=== PATIENT | male | born 1970 | race Caucasian/White ===

== ENCOUNTER 2017-03-09 10:56 | Inpatient (IN) | payer MEDICARE, OTHER ==
[2017-03-09 11:30] VITALS: BMI 33.4
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
[2017-03-09] MEDS ORDERED: MAGNESIUM HYDROX 2400MG/30ML ORAL SUSPENSION 30 ML CUP PO PRN (12:00)
[2017-03-09] MEDS ORDERED: chlordiazePOXIDE HCL 25 MG CAPSULE PO PRN (12:00)
[2017-03-09] MEDS ORDERED: P-EPHED 60MG/TRIPROLIDI 2.5MG TABLET PO PRN (12:00)
[2017-03-09] MEDS ORDERED: MAGNESIUM CITRATE 300 ML BOTTLE PO PRN (12:00)
[2017-03-09] MEDS ORDERED: MENTHOL/PHENOL 1 EACH UD MM PRN (12:00)
[2017-03-09] MEDS ORDERED: hydrOXYzine PAMOATE 50 MG CAPSULE (FP) PO PRN (12:00)
[2017-03-09] MEDS ORDERED: LOPERAMIDE HCL 2 MG CAPSULE PO PRN (12:00)
[2017-03-09] MEDS ORDERED: NICOTINE POLACRILEX 2 MG GUM BUC PRN (12:00)
[2017-03-09] MEDS ORDERED: guaiFENesin/D-METHORPHAN HB 10 ML UNIT-DOSE CUPS PO PRN (12:00)
[2017-03-09] MEDS ORDERED: IBUPROFEN 400 MG TABLET (FP) PO PRN (12:00)
[2017-03-09] MEDS ORDERED: ACETAMINOPHEN 325 MG TABLET (FP) PO PRN (12:00)
[2017-03-09] MEDS ORDERED: chlordiazePOXIDE HCL 25 MG CAPSULE PO ONE (13:00)
[2017-03-09] MEDS: LEVOTHYROXINE NA 125 MCG TABLET (FP) PO SCH (15:29)
[2017-03-09] MEDS: chlordiazePOXIDE HCL 25 MG CAPSULE PO SCH ×2 (18:01→22:30)
[2017-03-09 18:17] LABS: URINE APPEARANCE CLEAR; URINE BILIRUBIN NEGATIVE (NEGATIVE); URINE BLOOD NEGATIVE (NEGATIVE); URINE COLOR LTYELLOW; URINE GLUCOSE (UA) NEGATIVE (NEGATIVE); URINE KETONE NEGATIVE (NEGATIVE); URINE LEUK ESTERASE NEGATIVE (NEGATIVE); URINE NITRITE NEGATIVE (NEGATIVE); URINE PROTEIN NEGATIVE (NEGATIVE); URINE UROBILINOGEN NEGATIVE mg/dL (0.2-1.0)
[2017-03-09] MEDS: THIAMINE HCL 100 MG TABLET (FP) PO SCH (22:30)
[2017-03-09] MEDS: diphenhydrAMINE HCL 50 MG CAPSULE PO PRN (22:31)
[2017-03-09] MEDS: MAG HYDROX/AL HYDROX/SIMETH 30 ML UNIT-DOSE CUP PO PRN (22:32)
[2017-03-10] MEDS: chlordiazePOXIDE HCL 25 MG CAPSULE PO SCH ×4 (06:14→22:41)
--- NOTE | 2017-03-10 08:11 | EKG ---
Test Reason : Blood Pressure : / mmHG Vent. Rate : 091 BPM Atrial Rate : 091 BPM P-R Int : 158 ms QRS Dur : 080 ms QT Int : 340 ms P-R-T Axes : 045 025 033 degrees QTc Int : 418 ms NORMAL SINUS RHYTHM POSSIBLE LEFT ATRIAL ENLARGEMENT BORDERLINE ECG NO PREVIOUS ECGS AVAILABLE Confirmed by HERMINIO WHYTE, MONI ([id number]) on 03/10/2017 8:11:28 AM Referred By: Confirmed By:MONI DURHAM MD
[2017-03-10 09:26] LABS: MCH 33.3 pg (25.7-33.7); MCHC 33.9 g/dl (32.0-35.9); MEAN PLT VOLUME 7.6 fl (7.5-11.1); PLATELET COUNT 194 K/MM3 (134-434); RDW 14.6 % (11.9-15.9); WHITE BLOOD COUNT 5.2 K/mm3 (4.0-10.0)
[2017-03-10 10:09] LABS: ALBUMIN 3.5 g/dl (3.4-5.0); ALK PHOS 45 U/L (45-117); ANION GAP 6 (8-16); BILIRUBIN,TOTAL 0.7 mg/dL (0.2-1.0); CALCIUM 8.7 mg/dL (8.5-10.1); CO2 27 mmol/L (21-32); CREATININE 0.8 mg/dL (0.7-1.3); GLUCOSE,RANDOM 112 mg/dL (74-106); SGOT/AST 26 U/L (15-37); SGPT/ALT 30 U/L (12-78); THYROID STIMULATING HORMONE 0.45 uIU/ml (0.358-3.74); TOT PROT 6.5 g/dl (6.4-8.2)
[2017-03-10] MEDS: PRENATAL VITAMINS W/ FOLIC ACID TABLET (FP) PO SCH (10:43)
[2017-03-10] MEDS: MAG HYDROX/AL HYDROX/SIMETH 30 ML UNIT-DOSE CUP PO PRN (10:43)
[2017-03-10] MEDS: LEVOTHYROXINE NA 125 MCG TABLET (FP) PO SCH (10:43)
[2017-03-10] MEDS: PANTOPRAZOLE 20 MG TABLET (FP) PO SCH ×2 (13:52→22:41)
--- NOTE | 2017-03-10 15:47 | PN ---
S CIWA - CIWA Score Nausea/Vomitin Muscle Tremors: 4-Moderate,w/Arms Extend Anxiety: 4-Mod. Anxious/Guarded Agitation: 3 Paroxysmal Sweats: No Perspiration Orientation: 0-Oriented Tacttile Disturbances: 1-Very Mild Itch/Numbness Auditory Disturbances: 0-None Visual Disturbances: 0-None Headache: 2-Mild CIWA-Ar Total Score: 17 BHS Progress Note (SOAP) Subjective: Tremor, chills, nausea, anxious, sweating, indigestion Objective: 03/10/17 15:46 Last Vital Signs Temp Pulse Resp BP Pulse Ox 96.9 F L 66 18 139/87 03/10/17 14:58 03/10/17 14:58 03/10/17 14:58 03/10/17 14:58 Laboratory Tests 03/09/17 03/10/17 03/10/17 14:27 07:40 07:40 WBC 5.2 RBC 3.87 L Hgb 12.9 Hct 37.9 MCV 98.0 H MCH 33.3 MCHC 33.9 RDW 14.6 Plt Count 194 MPV 7.6 Sodium 138 Potassium 3.8 Chloride 105 Carbon Dioxide 27 Anion Gap 6 L BUN 15 Creatinine 0.8 Creat Clearance w eGFR > 60 Random Glucose 112 H Calcium 8.7 Total Bilirubin 0.7 AST 26 ALT 30 Alkaline Phosphatase 45 Total Protein 6.5 Albumin 3.5 TSH 0.45 Urine Color Ltyellow Urine Appearance Clear Urine pH 6.0 Ur Specific [place] 1.020 Urine Protein Negative Urine Glucose (UA) Negative Urine Ketones Negative Urine Blood Negative Urine Nitrite Negative Urine Bilirubin Negative Urine Urobilinogen Negative Ur Leukocyte Esterase Negative RPR Titer 03/10/17 07:40 WBC RBC Hgb Hct MCV MCH MCHC RDW Plt Count MPV Sodium Potassium Chloride Carbon Dioxide Anion Gap BUN Creatinine Creat Clearance w eGFR Random Glucose Calcium Total Bilirubin AST ALT Alkaline Phosphatase Total Protein Albumin TSH Urine Color Urine Appearance Urine pH Ur Specific [place] Urine Protein Urine Glucose (UA) Urine Ketones Urine Blood Urine Nitrite Urine Bilirubin Urine Urobilinogen Ur Leukocyte Esterase RPR Titer Nonreactive Labs noted Assessment: 03/10/17 15:47 Withdrawal symptoms Plan: Continue detox Encouraged to drink lots of water for hydration
[2017-03-10] MEDS: diphenhydrAMINE HCL 50 MG CAPSULE PO PRN (22:41)
[2017-03-10] MEDS: THIAMINE HCL 100 MG TABLET (FP) PO SCH (22:41)
[2017-03-11] MEDS: chlordiazePOXIDE HCL 25 MG CAPSULE PO SCH ×2 (06:04→10:41)
[2017-03-11] MEDS: PRENATAL VITAMINS W/ FOLIC ACID TABLET (FP) PO SCH (10:41)
[2017-03-11] MEDS: LEVOTHYROXINE NA 125 MCG TABLET (FP) PO SCH (10:41)
[2017-03-11] MEDS: PANTOPRAZOLE 20 MG TABLET (FP) PO SCH ×2 (10:41→22:35)
--- NOTE | 2017-03-11 11:21 | PN ---
[facility] CIWA - CIWA Score Nausea/Vomitin Muscle Tremors: 4-Moderate,w/Arms Extend Anxiety: 3 Agitation: 3 Paroxysmal Sweats: 3 Orientation: 0-Oriented Tacttile Disturbances: 0-None Auditory Disturbances: 0-None Visual Disturbances: 0-None Headache: 0-None Present CIWA-Ar Total Score: 16 S Progress Note (SOAP) Subjective: Anxiety,Tremors,sweating,interrupted sleep,restless Objective: 03/11/17 11:20 Vital Signs - 8 hr 03/11/17 03/11/17 03/11/17 03:26 07:27 09:13 Temperature 96.1 F L 99.4 F Pulse Rate 58 L 74 Respiratory 18 18 18 Rate Blood Pressure 126/81 136/82 Laboratory Last Values WBC 5.2 K/mm3 (4.0-10.0) 03/10/17 07:40 RBC 3.87 M/mm3 (4.00-5.60) L 03/10/17 07:40 Hgb 12.9 GM/dL (11.7-16.9) 03/10/17 07:40 Hct 37.9 % (35.4-49) 03/10/17 07:40 MCV 98.0 fl (80-96) H 03/10/17 07:40 MCH 33.3 pg (25.7-33.7) 03/10/17 07:40 MCHC 33.9 g/dl (32.0-35.9) 03/10/17 07:40 RDW 14.6 % (11.9-15.9) 03/10/17 07:40 Plt Count 194 K/MM3 (134-434) 03/10/17 07:40 MPV 7.6 fl (7.5-11.1) 03/10/17 07:40 Sodium 138 mmol/L (136-145) 03/10/17 07:40 Potassium 3.8 mmol/L (3.5-5.1) 03/10/17 07:40 Chloride 105 mmol/L (98-107) 03/10/17 07:40 Carbon Dioxide 27 mmol/L (21-32) 03/10/17 07:40 Anion Gap 6 (8-16) L 03/10/17 07:40 BUN 15 mg/dL (7-18) 03/10/17 07:40 Creatinine 0.8 mg/dL (0.7-1.3) 03/10/17 07:40 Creat Clearance w eGFR > 60 (>60) 03/10/17 07:40 Random Glucose 112 mg/dL (74-106) H 03/10/17 07:40 Calcium 8.7 mg/dL (8.5-10.1) 03/10/17 07:40 Total Bilirubin 0.7 mg/dL (0.2-1.0) 03/10/17 07:40 AST 26 U/L (15-37) 03/10/17 07:40 ALT 30 U/L (12-78) 03/10/17 07:40 Alkaline Phosphatase 45 U/L (45-117) 03/10/17 07:40 Total Protein 6.5 g/dl (6.4-8.2) 03/10/17 07:40 Albumin 3.5 g/dl (3.4-5.0) 03/10/17 07:40 TSH 0.45 uIU/ml (0.358-3.74) 03/10/17 07:40 Urine Color Ltyellow 03/09/17 14:27 Urine Appearance Clear 03/09/17 14:27 Urine pH 6.0 (5.0-8.0) 03/09/17 14:27 Ur Specific [place] 1.020 (1.005-1.025) 03/09/17 14:27 Urine Protein Negative (NEGATIVE) 03/09/17 14:27 Urine Glucose (UA) Negative (NEGATIVE) 03/09/17 14:27 Urine Ketones Negative (NEGATIVE) 03/09/17 14:27 Urine Blood Negative (NEGATIVE) 03/09/17 14:27 Urine Nitrite Negative (NEGATIVE) 03/09/17 14:27 Urine Bilirubin Negative (NEGATIVE) 03/09/17 14:27 Urine Urobilinogen Negative mg/dL (0.2-1.0) 03/09/17 14:27 Ur Leukocyte Esterase Negative (NEGATIVE) 03/09/17 14:27 RPR Titer Nonreactive (NONREACTIVE) 03/10/17 07:40 labs noted Assessment: 03/11/17 11:21 withdrawal sx. Plan: Continue detox
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
[2017-03-11] MEDS ORDERED: ZOLPIDEM TARTRATE 10 MG TABLET (PARK CARE ONLY) PO PRN (16:21)
[2017-03-11] MEDS: chlordiazePOXIDE 5 MG CAPSULE PO SCH ×2 (17:32→22:35)
[2017-03-11] MEDS: busPIRone HCL 5 MG TABLET PO SCH (22:35)
[2017-03-11] MEDS: THIAMINE HCL 100 MG TABLET (FP) PO SCH (22:35)
[2017-03-11] MEDS: risperiDONE 1 MG TABLET (FP) PO SCH (22:35)
[2017-03-12] MEDS ORDERED: LEVOTHYROXINE NA 25 MCG TABLET (FP) ONE (05:26)
[2017-03-12] MEDS ORDERED: LEVOTHYROXINE NA 100 MCG TABLET (FP) ONE (05:27)
[2017-03-12] MEDS: chlordiazePOXIDE 5 MG CAPSULE PO SCH ×2 (06:14→10:47)
[2017-03-12] MEDS ORDERED: LEVOTHYROXINE 25 MCG, LEVOTHYROXINE 100 MCG PO SCH (07:00)
[2017-03-12] MEDS ORDERED: SERTRALINE HCL 50 MG TABLET (FP) PO SCH (10:00)
[2017-03-12] MEDS: busPIRone HCL 5 MG TABLET PO SCH (10:47)
[2017-03-12] MEDS: PANTOPRAZOLE 20 MG TABLET (FP) PO SCH (10:47)
[2017-03-12] MEDS: PRENATAL VITAMINS W/ FOLIC ACID TABLET (FP) PO SCH (10:47)
[2017-03-12] MEDS: risperiDONE 1 MG TABLET (FP) PO SCH (10:47)
--- NOTE | 2017-03-12 13:35 | PN ---
BHS Progress Note (SOAP) Subjective: Sweating,interrupted sleep,restless Objective: 03/12/17 13:33 Vital Signs - 8 hr 03/12/17 03/12/17 06:35 09:39 Temperature 96.3 F L 97 F L Pulse Rate 69 84 Respiratory 18 18 Rate Blood Pressure 130/82 124/80 Laboratory Tests 03/09/17 03/10/17 03/10/17 14:27 07:40 07:40 WBC 5.2 RBC 3.87 L Hgb 12.9 Hct 37.9 MCV 98.0 H MCH 33.3 MCHC 33.9 RDW 14.6 Plt Count 194 MPV 7.6 Sodium 138 Potassium 3.8 Chloride 105 Carbon Dioxide 27 Anion Gap 6 L BUN 15 Creatinine 0.8 Creat Clearance w eGFR > 60 Random Glucose 112 H Calcium 8.7 Total Bilirubin 0.7 AST 26 ALT 30 Alkaline Phosphatase 45 Total Protein 6.5 Albumin 3.5 TSH 0.45 Urine Color Ltyellow Urine Appearance Clear Urine pH 6.0 Ur Specific [place] 1.020 Urine Protein Negative Urine Glucose (UA) Negative Urine Ketones Negative Urine Blood Negative Urine Nitrite Negative Urine Bilirubin Negative Urine Urobilinogen Negative Ur Leukocyte Esterase Negative RPR Titer 03/10/17 07:40 WBC RBC Hgb Hct MCV MCH MCHC RDW Plt Count MPV Sodium Potassium Chloride Carbon Dioxide Anion Gap BUN Creatinine Creat Clearance w eGFR Random Glucose Calcium Total Bilirubin AST ALT Alkaline Phosphatase Total Protein Albumin TSH Urine Color Urine Appearance Urine pH Ur Specific [place] Urine Protein Urine Glucose (UA) Urine Ketones Urine Blood Urine Nitrite Urine Bilirubin Urine Urobilinogen Ur Leukocyte Esterase RPR Titer Nonreactive labs noted Assessment: 03/12/17 13:33 Withdrawal sx Plan: Continue detox
[2017-03-12 14:28] VITALS: BP 119/79; PULSE 86; TEMP 97.6
[2017-03-12] MEDS ORDERED: chlordiazePOXIDE HCL 10 MG CAPSULE PO SCH (17:00)
== END 2017-03-12 13:54 | disposition left against medical advice (07) | DRG 770 ==
LOC: YASAS 10:56 → Y3N 13:55
PROVIDERS: ADMIT Internal Medicine; ATTEND Internal Medicine
PROC: HZ2ZZZZ Detoxification Services for Substance Abuse Treatment (ICD-10-PCS; principal; 2017-03-09)
DX: F10.230 Alcohol dependence with withdrawal, uncomplicated (principal); F14.20 Cocaine dependence, uncomplicated; F17.210 Nicotine dependence, cigarettes, uncomplicated; F25.9 Schizoaffective disorder, unspecified; E03.9 Hypothyroidism, unspecified; G47.00 Insomnia, unspecified; M54.5 Low back pain; G89.29 Other chronic pain; Z91.018 Allergy to other foods
CPT/HCPCS: 36415; 80053; 81003; 84443; 85027; 86593; 93005; 93010; J2794

== ENCOUNTER 2020-03-07 14:17 | Inpatient (IN) | payer OTHER ==
--- NOTE | 2020-03-07 14:50 | BHS.RME ---
Substance Use & Tx History - Substance Use History Alcohol Substance amount: 3 pints Vodka, Beer: 2 x 6 pack of 24 ounce Frequency of use: More than 3 times per week Substance route: Oral Date of Last Use: 03/07/20 (First use age 20 y. No seizures. Blackout: today. 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) Cocaine- Powder Substance amount: 4 grams Frequency of use: More than 3 times per week Substance route: Inhalation (ex: sniffing or snorting) Date of Last Use: 03/06/20 (First use age 20 y) Nicotine Substance amount: 6 cigs Frequency of use: Daily Substance route: Smoking Date of Last Use: 03/07/20 (First use age 20 y) Physical/Psych/Mental Status - Behavior General Behavior: Increased activity (restlessness, agitation) Eye Contact: Normal - Cooperativeness Cooperativeness: Cooperative - Thinking Thought Processes: Tight Thought content: Future oriented - Physical Health Problems Is patient presently having any pain?: No Does patient presently have any injuries (include location): No Does patient currently have a fever: No CIWA Nausea/Vomitin-No Nausea/No Vomiting Muscle Tremors: 2 Anxiety: 3 Agitation: 2 Paroxysmal Sweats: 3 Orientation: 2-Disoriented Date<2 days Tacttile Disturbances: 0-None Auditory Disturbances: 0-None Visual Disturbances: 0-None Headache: 0-None Present CIWA-Ar Total Score: 12
[2020-03-07 17:13] VITALS: BMI 36.5
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
[2020-03-07] MEDS ORDERED: hydrOXYzine PAMOATE 25 MG CAPSULE (FP) PO PRN (19:53)
[2020-03-07] MEDS ORDERED: chlordiazePOXIDE HCL 10 MG CAPSULE PO PRN (19:53)
[2020-03-07] MEDS ORDERED: MAG HYDROX/AL HYDROX/SIMETH 30 ML UNIT-DOSE CUP PO PRN (19:53)
[2020-03-07] MEDS ORDERED: MENTHOL/PHENOL 1 EACH UD MM PRN (19:53)
[2020-03-07] MEDS ORDERED: NICOTINE POLACRILEX 2 MG GUM BUC PRN (19:53)
[2020-03-07] MEDS ORDERED: IBUPROFEN 600 MG TABLET (FP) PO PRN (19:53)
[2020-03-07] MEDS ORDERED: ACETAMINOPHEN 325 MG TABLET (FP) PO PRN ×2 (19:53)
[2020-03-07] MEDS ORDERED: BISMUTH SUBSALICYLATE 524 MG/30 ML UD PO PRN (19:53)
[2020-03-07] MEDS ORDERED: MAGNESIUM CITRATE 300 ML BOTTLE PO PRN (19:53)
[2020-03-07] MEDS ORDERED: METHOCARBAMOL 500 MG TABLET PO PRN (19:53)
[2020-03-07] MEDS ORDERED: ONDANSETRON *ODT* 4 MG TABLET SL ONE (20:15)
[2020-03-07] MEDS: chlordiazePOXIDE HCL 25 MG CAPSULE PO SCH (21:07)
[2020-03-07] MEDS ORDERED: MELATONIN 5 MG TABLETS PO SCH (22:00)
[2020-03-07] MEDS: THIAMINE HCL 100 MG TABLET (FP) PO SCH (22:48)
[2020-03-08] MEDS: chlordiazePOXIDE HCL 25 MG CAPSULE PO SCH ×3 (05:35→21:28)
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
[2020-03-08] MEDS ORDERED: ONDANSETRON *ODT* 4 MG TABLET SL PRN (09:58)
[2020-03-08] MEDS ORDERED: LEVOTHYROXINE NA 125 MCG TABLET (FP) PO SCH (10:00)
--- NOTE | 2020-03-08 10:07 | PN ---
S CIWA - CIWA Score Nausea/Vomitin-Mild Nausea/No Vomiting Muscle Tremors: 3 Anxiety: 3 Agitation: 3 Paroxysmal Sweats: 3 Orientation: 0-Oriented Tacttile Disturbances: 0-None Auditory Disturbances: 0-None Visual Disturbances: 0-None Headache: 0-None Present CIWA-Ar Total Score: 13 BHS Progress Note (SOAP) Subjective: nausea sweats interrupted sleep anxiety Objective: 03/08/20 10:06 Vital Signs Temperature 97.1 F L 03/08/20 08:45 Pulse Rate 65 03/08/20 08:45 Respiratory Rate 17 03/08/20 08:45 Blood Pressure 136/72 03/08/20 08:45 O2 Sat by Pulse Oximetry (%) 98 03/08/20 08:45 labs pending aaox3 ambulating no acute distress Assessment: 03/08/20 10:07 withdrawals Plan: continue detox zofran sl prn pending labs
[2020-03-08] MEDS: PRENATAL VITAMINS W/ FOLIC ACID TABLET (FP) PO SCH (10:17)
[2020-03-08] MEDS: NICOTINE 7 MG/24 HOURS TOPICAL PATCH TD SCH (10:17)
[2020-03-08] MEDS ORDERED: LEVOTHYROXINE NA 100 MCG TABLET (FP) ONE (10:30)
[2020-03-08] MEDS ORDERED: LEVOTHYROXINE NA 25 MCG TABLET (FP) ONE (10:30)
[2020-03-08] MEDS: LEVOTHYROXINE 100 MCG, LEVOTHYROXINE 25 MCG PO SCH (10:31)
[2020-03-08 10:43] LABS: ALBUMIN 3.3 g/dl (3.4-5.0); BILIRUBIN,TOTAL 0.6 mg/dL (0.2-1); BLOOD UREA NITROGEN 17.2 mg/dL (7-18); CALCIUM 8.6 mg/dL (8.5-10.1); CREATININE 0.9 mg/dL (0.55-1.3); TOT PROT 6.5 g/dl (6.4-8.2)
[2020-03-08 10:44] LABS: HEMATOCRIT 35.9 % (35.4-49); MCH 32.8 pg (25.7-33.7); MCHC 33.4 g/dl (32.0-35.9); MEAN CELL VOLUME 98.2 fl (80-96); MEAN PLT VOLUME 8.2 fl (7.5-11.1); PLATELET COUNT 171 K/MM3 (134-434); RBC 3.65 M/mm3 (4.00-5.60)
--- NOTE | 2020-03-08 10:46 | EKG ---
Test Reason : Blood Pressure : / mmHG Vent. Rate : 075 BPM Atrial Rate : 075 BPM P-R Int : 160 ms QRS Dur : 076 ms QT Int : 354 ms P-R-T Axes : 052 025 050 degrees QTc Int : 395 ms NORMAL SINUS RHYTHM NORMAL ECG WHEN COMPARED WITH ECG OF 09-MAR-2017 14:33, NO SIGNIFICANT CHANGE WAS FOUND Confirmed by Jacky Iyer ([id number]) on 03/08/2020 10:46:26 AM Referred By: Confirmed By:Jacky Iyer
[2020-03-08] MEDS: MAGNESIUM HYDROX 2400MG/30ML ORAL SUSPENSION 30 ML CUP PO PRN (14:37)
[2020-03-08] MEDS: THIAMINE HCL 100 MG TABLET (FP) PO SCH (21:27)
[2020-03-08] MEDS: ROSUVASTATIN CA 10 MG TABLET (FP) PO SCH (21:28)
[2020-03-08] MEDS: SUVOREXANT 10 MG TABLET PO PRN (21:32)
[2020-03-09] MEDS ORDERED: LEVOTHYROXINE NA 100 MCG TABLET (FP) ONE (03:09)
[2020-03-09] MEDS ORDERED: LEVOTHYROXINE NA 25 MCG TABLET (FP) ONE (03:09)
[2020-03-09] MEDS: chlordiazePOXIDE 5 MG CAPSULE PO SCH ×3 (05:54→21:24)
[2020-03-09] MEDS: MAGNESIUM HYDROX 2400MG/30ML ORAL SUSPENSION 30 ML CUP PO PRN (05:58)
[2020-03-09] MEDS: LEVOTHYROXINE 100 MCG, LEVOTHYROXINE 25 MCG PO SCH (07:20)
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
[2020-03-09] MEDS: NICOTINE 7 MG/24 HOURS TOPICAL PATCH TD SCH (10:55)
[2020-03-09] MEDS: PRENATAL VITAMINS W/ FOLIC ACID TABLET (FP) PO SCH (10:55)
[2020-03-09] MEDS: BACITRACIN 0.9 GM PACKET TP SCH (10:57)
[2020-03-09] MEDS: PANTOPRAZOLE 40 MG TABLET PO SCH (10:57)
[2020-03-09] MEDS: THIAMINE HCL 100 MG TABLET (FP) PO SCH (21:24)
[2020-03-09] MEDS: ROSUVASTATIN CA 10 MG TABLET (FP) PO SCH (21:24)
[2020-03-10] MEDS ORDERED: chlordiazePOXIDE HCL 10 MG CAPSULE PO PRN
[2020-03-10] MEDS ORDERED: LEVOTHYROXINE NA 25 MCG TABLET (FP) ONE (03:16)
[2020-03-10] MEDS ORDERED: LEVOTHYROXINE NA 100 MCG TABLET (FP) ONE (03:16)
[2020-03-10] MEDS: chlordiazePOXIDE HCL 10 MG CAPSULE PO SCH ×3 (05:40→21:48)
[2020-03-10] MEDS: LEVOTHYROXINE 100 MCG, LEVOTHYROXINE 25 MCG PO SCH (08:13)
[2020-03-10] MEDS: BACITRACIN 0.9 GM PACKET TP SCH (10:37)
[2020-03-10] MEDS: PRENATAL VITAMINS W/ FOLIC ACID TABLET (FP) PO SCH (10:37)
[2020-03-10] MEDS: NICOTINE 7 MG/24 HOURS TOPICAL PATCH TD SCH (10:37)
[2020-03-10] MEDS: PANTOPRAZOLE 40 MG TABLET PO SCH (10:38)
--- NOTE | 2020-03-10 14:43 | PN ---
S CIWA - CIWA Score Nausea/Vomitin-Mild Nausea/No Vomiting Muscle Tremors: 2 Anxiety: 1-Mildly Anxious Agitation: 1-Slight > Activity Paroxysmal Sweats: No Perspiration Orientation: 0-Oriented Tacttile Disturbances: 1-Very Mild Itch/Numbness Auditory Disturbances: 0-None Visual Disturbances: 0-None Headache: 1-Very Mild CIWA-Ar Total Score: 7 S Progress Note (SOAP) Subjective: alert,irritable,anxious,interrupted sleep,aching pain in the body and back Objective: 03/10/20 14:38 Vital Signs Temperature 97.3 F L 03/10/20 05:26 Pulse Rate 77 03/10/20 05:26 Respiratory Rate 18 03/10/20 05:26 Blood Pressure 135/86 03/10/20 05:26 O2 Sat by Pulse Oximetry (%) 97 03/10/20 05:26 03/10/20 14:43 Laboratory Last Values WBC 5.0 K/mm3 (4.0-10.0) 03/08/20 08:00 RBC 3.65 M/mm3 (4.00-5.60) L 03/08/20 08:00 Hgb 12.0 GM/dL (11.7-16.9) 03/08/20 08:00 Hct 35.9 % (35.4-49) 03/08/20 08:00 MCV 98.2 fl (80-96) H 03/08/20 08:00 MCH 32.8 pg (25.7-33.7) 03/08/20 08:00 MCHC 33.4 g/dl (32.0-35.9) 03/08/20 08:00 RDW 15.0 % (11.9-15.9) 03/08/20 08:00 Plt Count 171 K/MM3 (134-434) 03/08/20 08:00 MPV 8.2 fl (7.5-11.1) 03/08/20 08:00 Sodium 139 mmol/L (136-145) 03/08/20 08:00 Potassium 4.0 mmol/L (3.5-5.1) 03/08/20 08:00 Chloride 106 mmol/L (98-107) 03/08/20 08:00 Carbon Dioxide 30 mmol/L (21-32) 03/08/20 08:00 Anion Gap 4 MMOL/L (8-16) L 03/08/20 08:00 BUN 17.2 mg/dL (7-18) 03/08/20 08:00 Creatinine 0.9 mg/dL (0.55-1.3) 03/08/20 08:00 Est GFR (CKD-EPI)AfAm 115.83 03/08/20 08:00 Est GFR (CKD-EPI)NonAf 99.94 03/08/20 08:00 Random Glucose 93 mg/dL (74-106) 03/08/20 08:00 Calcium 8.6 mg/dL (8.5-10.1) 03/08/20 08:00 Total Bilirubin 0.6 mg/dL (0.2-1) 03/08/20 08:00 AST 41 U/L (15-37) H 03/08/20 08:00 ALT 32 U/L (13-61) 03/08/20 08:00 Alkaline Phosphatase 63 U/L (45-117) 03/08/20 08:00 Total Protein 6.5 g/dl (6.4-8.2) 03/08/20 08:00 Albumin 3.3 g/dl (3.4-5.0) L 03/08/20 08:00 Syphilis Serology Non-reactive (NONREACTIVE) 03/08/20 08:00 COVID-19 (DEJAH) Not detected (Not Detected) 03/07/20 20:20 Assessment: 03/10/20 14:44 withdrawal symptom Plan: continue detox librium regimen,discharge in am
[2020-03-10] MEDS: THIAMINE HCL 100 MG TABLET (FP) PO SCH (21:49)
[2020-03-10] MEDS: ROSUVASTATIN CA 10 MG TABLET (FP) PO SCH (21:49)
[2020-03-10] MEDS: SUVOREXANT 10 MG TABLET PO PRN (22:14)
[2020-03-11] MEDS ORDERED: LEVOTHYROXINE NA 25 MCG TABLET (FP) ONE (04:28)
[2020-03-11] MEDS ORDERED: LEVOTHYROXINE NA 100 MCG TABLET (FP) ONE (04:28)
[2020-03-11] MEDS ORDERED: chlordiazePOXIDE HCL 10 MG CAPSULE PO ONE (05:00)
[2020-03-11] MEDS: LEVOTHYROXINE 100 MCG, LEVOTHYROXINE 25 MCG PO SCH (06:15)
[2020-03-11 06:22] VITALS: BP 144/95; PULSE 66; TEMP 97
--- NOTE | 2020-03-11 13:53 | PN ---
[facility] CIWA - CIWA Score Nausea/Vomitin-No Nausea/No Vomiting Muscle Tremors: None Anxiety: 1-Mildly Anxious Agitation: 0-Normal Activity Paroxysmal Sweats: No Perspiration Orientation: 0-Oriented Tacttile Disturbances: 0-None Auditory Disturbances: 0-None Visual Disturbances: 0-None Headache: 0-None Present CIWA-Ar Total Score: 1 S Progress Note (SOAP) Subjective: alert,no complaint Objective: 03/11/20 13:49 Vital Signs Temperature 97 F L 03/11/20 05:17 Pulse Rate 66 03/11/20 05:17 Respiratory Rate 16 03/11/20 05:17 Blood Pressure 144/95 03/11/20 05:17 O2 Sat by Pulse Oximetry (%) 99 03/11/20 05:17 Assessment: 03/11/20 13:52 detox completed,no withdrawal symptom Plan: stable for discharge today,patient declined to go to rehab,discharge today,[facility]
--- NOTE | 2020-03-11 14:01 | DS ---
[facility] Detox Discharge Summary Admission Date: 03/07/20 Discharge Date: 03/11/20 - History Present History: Alcohol Dependence, Cocaine Dependence Additional Comments: alert,oriented x 3 ambulation on the unit lung clear on auscultation bilaterally abdomen soft,no distension,no pain,no tenderness no swelling of legs detox completed,no withdrawal symptom patient declined rehab stable for discharge will go home and follow up with out patient program [facility] patient is stable for discharge total time spending on discharge 35 minutes patient has all medication at home Pertinent Past History: hypothyroidism schizophrenia hypothyroidism - Physical Exam Results Vital Signs: Vital Signs Temperature 97 F L 03/11/20 05:17 Pulse Rate 66 03/11/20 05:17 Respiratory Rate 16 03/11/20 05:17 Blood Pressure 144/95 03/11/20 05:17 O2 Sat by Pulse Oximetry (%) 99 03/11/20 05:17 Pertinent Admission Physical Exam Findings: withdrawal signs and symptom Laboratory Last Values WBC 5.0 K/mm3 (4.0-10.0) 03/08/20 08:00 RBC 3.65 M/mm3 (4.00-5.60) L 03/08/20 08:00 Hgb 12.0 GM/dL (11.7-16.9) 03/08/20 08:00 Hct 35.9 % (35.4-49) 03/08/20 08:00 MCV 98.2 fl (80-96) H 03/08/20 08:00 MCH 32.8 pg (25.7-33.7) 03/08/20 08:00 MCHC 33.4 g/dl (32.0-35.9) 03/08/20 08:00 RDW 15.0 % (11.9-15.9) 03/08/20 08:00 Plt Count 171 K/MM3 (134-434) 03/08/20 08:00 MPV 8.2 fl (7.5-11.1) 03/08/20 08:00 Sodium 139 mmol/L (136-145) 03/08/20 08:00 Potassium 4.0 mmol/L (3.5-5.1) 03/08/20 08:00 Chloride 106 mmol/L (98-107) 03/08/20 08:00 Carbon Dioxide 30 mmol/L (21-32) 03/08/20 08:00 Anion Gap 4 MMOL/L (8-16) L 03/08/20 08:00 BUN 17.2 mg/dL (7-18) 03/08/20 08:00 Creatinine 0.9 mg/dL (0.55-1.3) 03/08/20 08:00 Est GFR (CKD-EPI)AfAm 115.83 03/08/20 08:00 Est GFR (CKD-EPI)NonAf 99.94 03/08/20 08:00 Random Glucose 93 mg/dL (74-106) 03/08/20 08:00 Calcium 8.6 mg/dL (8.5-10.1) 03/08/20 08:00 Total Bilirubin 0.6 mg/dL (0.2-1) 03/08/20 08:00 AST 41 U/L (15-37) H 03/08/20 08:00 ALT 32 U/L (13-61) 03/08/20 08:00 Alkaline Phosphatase 63 U/L (45-117) 03/08/20 08:00 Total Protein 6.5 g/dl (6.4-8.2) 03/08/20 08:00 Albumin 3.3 g/dl (3.4-5.0) L 03/08/20 08:00 Syphilis Serology Non-reactive (NONREACTIVE) 03/08/20 08:00 COVID-19 (DEJAH) Not detected (Not Detected) 03/07/20 20:20 Vital Signs Temperature 97 F L 03/11/20 05:17 Pulse Rate 66 03/11/20 05:17 Respiratory Rate 16 03/11/20 05:17 Blood Pressure 144/95 03/11/20 05:17 O2 Sat by Pulse Oximetry (%) 99 03/11/20 05:17 - Treatment Hospital Course: Detox Protocol Followed, Detoxed Safely, Responded well, Discharged Condition Good Patient has Accepted a Rehab Referral to: declined - Medication Discharge Medications: Ambulatory Orders Levothyroxine [Synthroid -] 125 mcg PO DAILY 03/09/17 Esomeprazole Magnesium 40 mg PO DAILY 03/07/20 Risperidone [Risperdal] 1 mg PO DAILY 03/07/20 Tizanidine HCl [Zanaflex (Nf) -] 2 mg PO HS 03/07/20 - Diagnosis (1) Alcohol dependence with uncomplicated withdrawal Status: Acute (2) Cocaine dependence Status: Acute Qualifiers: Substance use status: uncomplicated Qualified Code(s): F14.20 - Cocaine dependence, uncomplicated (3) GERD (gastroesophageal reflux disease) Status: Chronic (4) Hypothyroid Status: Chronic Qualifiers: Hypothyroidism type: unspecified Qualified Code(s): E03.9 - Hypothyroidism, unspecified (5) Nicotine dependence Status: Chronic Qualifiers: Nicotine product type: cigarettes Substance use status: uncomplicated Qualified Code(s): F17.210 - Nicotine dependence, cigarettes, uncomplicated (6) Schizophrenia Status: Chronic (7) Hypercholesterolemia Status: Acute - AMA Did Patient Leave Against Medical Advice: No
== END 2020-03-11 10:00 | disposition home or self-care (01) | DRG 897 ==
LOC: YASAS 14:17 → Y6N 20:09
PROVIDERS: ADMIT Allergy & Immunology; ATTEND Allergy & Immunology
PROC: HZ2ZZZZ Detoxification Services for Substance Abuse Treatment (ICD-10-PCS; principal; 2020-03-07)
DX: F10.230 Alcohol dependence with withdrawal, uncomplicated (principal); F19.282 Other psychoactive substance dependence with psychoactive substance-induced sleep disorder; F17.210 Nicotine dependence, cigarettes, uncomplicated; F25.9 Schizoaffective disorder, unspecified; F19.24 Other psychoactive substance dependence with psychoactive substance-induced mood disorder; K21.9 Gastro-esophageal reflux disease without esophagitis; E03.9 Hypothyroidism, unspecified; E78.00 Pure hypercholesterolemia, unspecified; M54.5 Low back pain; G89.29 Other chronic pain; S40.812A Abrasion of left upper arm, initial encounter; X58.XXXA Exposure to other specified factors, initial encounter; Y93.9 Activity, unspecified; Y92.9 Unspecified place or not applicable; E66.9 Obesity, unspecified; Z68.26 Body mass index [BMI] 26.0-26.9, adult; H55.00 Unspecified nystagmus; Z91.018 Allergy to other foods
CPT/HCPCS: 36415; 80053; 85027; 86780; 93005; 93010; U0003

== ENCOUNTER 2021-01-15 11:12 | Inpatient (IN) | payer OTHER ==
[2021-01-15 12:47] VITALS: BMI 36.3
[2021-01-15] MEDS ORDERED: IBUPROFEN 400 MG TABLET (FP) PO PRN (14:25)
[2021-01-15] MEDS ORDERED: MAGNESIUM CITRATE 300 ML BOTTLE PO PRN (14:25)
[2021-01-15] MEDS ORDERED: ACETAMINOPHEN 325 MG TABLET (FP) PO PRN ×2 (14:25)
[2021-01-15] MEDS ORDERED: BISMUTH SUBSALICYLATE 524 MG/30 ML PO PRN (14:25)
[2021-01-15] MEDS ORDERED: MENTHOL/PHENOL 1 EACH UD MM PRN (14:25)
[2021-01-15] MEDS ORDERED: NICOTINE POLACRILEX 2 MG GUM BUC PRN (14:25)
[2021-01-15] MEDS ORDERED: ONDANSETRON *ODT* 4 MG TABLET SL PRN (14:25)
[2021-01-15] MEDS ORDERED: LORazepam 1 MG TABLET PO PRN (14:25)
[2021-01-15] MEDS ORDERED: MAGNESIUM HYDROX 2400MG/30ML ORAL SUSPENSION 30 ML CUP PO PRN (14:25)
[2021-01-15] MEDS ORDERED: MAG HYDROX/AL HYDROX/SIMETH 30 ML UNIT-DOSE CUP PO PRN (14:25)
[2021-01-15] MEDS ORDERED: TUBERCULIN PPD 5 TU/0.1ML VIAL ID ONE (15:50)
[2021-01-15] MEDS: LORazepam 2 MG TABLET PO SCH ×2 (17:23→22:23)
[2021-01-15] MEDS: hydrOXYzine PAMOATE 25 MG CAPSULE (FP) PO SCH ×2 (17:24→22:23)
[2021-01-15] MEDS: THIAMINE HCL 100 MG TABLET (FP) PO SCH (22:23)
[2021-01-15] MEDS: MELATONIN 5 MG TABLETS PO SCH (22:24)
[2021-01-15] MEDS: ROSUVASTATIN CA 10 MG TABLET (FP) PO SCH (22:24)
[2021-01-16] MEDS ORDERED: LEVOTHYROXINE NA 100 MCG TABLET (FP) ONE (05:19)
[2021-01-16] MEDS ORDERED: LEVOTHYROXINE NA 25 MCG TABLET (FP) ONE (05:19)
[2021-01-16] MEDS: LEVOTHYROXINE 100 MCG, LEVOTHYROXINE 25 MCG PO SCH (06:23)
[2021-01-16] MEDS: hydrOXYzine PAMOATE 25 MG CAPSULE (FP) PO SCH ×2 (06:23→10:39)
[2021-01-16] MEDS: LORazepam 2 MG TABLET PO SCH ×4 (06:24→22:20)
[2021-01-16] MEDS ORDERED: LEVOTHYROXINE NA 125 MCG TABLET (FP) PO SCH (07:00)
[2021-01-16 10:23] LABS: HEMATOCRIT 37.7 % (35.4-49); HEMOGLOBIN 12.4 GM/dL (11.7-16.9); MCH 32.6 pg (25.7-33.7); MEAN CELL VOLUME 98.7 fl (80-96); MEAN PLT VOLUME 7.6 fl (7.5-11.1); PLATELET COUNT 183 K/MM3 (134-434); RBC 3.81 M/mm3 (4.00-5.60); RDW 15.1 % (11.9-15.9); WHITE BLOOD COUNT 4.4 K/mm3 (4.0-10.0)
[2021-01-16 10:31] LABS: CALCIUM 8.8 mg/dL (8.5-10.1)
[2021-01-16 10:32] LABS: ALBUMIN 3.5 g/dl (3.4-5.0)
[2021-01-16 10:35] LABS: CREATININE 0.8 mg/dL (0.55-1.3)
[2021-01-16 10:37] LABS: TOT PROT 6.4 g/dl (6.4-8.2)
[2021-01-16 10:38] LABS: BILIRUBIN,TOTAL 0.4 mg/dL (0.2-1)
[2021-01-16] MEDS: PRENATAL VITAMINS W/ FOLIC ACID TABLET (FP) PO SCH (10:39)
[2021-01-16] MEDS: NICOTINE 7 MG/24 HOURS TOPICAL PATCH TD SCH (10:40)
[2021-01-16] MEDS ORDERED: IBUPROFEN 600 MG TABLET (FP) PO PRN (11:25)
[2021-01-16] MEDS ORDERED: hydrOXYzine PAMOATE 25 MG CAPSULE (FP) PO PRN (11:25)
[2021-01-16] MEDS ORDERED: PANTOPRAZOLE 40 MG TABLET PO ONE (11:25)
[2021-01-16] MEDS: METHOCARBAMOL 500 MG TABLET PO PRN (17:55)
[2021-01-16] MEDS: THIAMINE HCL 100 MG TABLET (FP) PO SCH (22:20)
[2021-01-16] MEDS: MELATONIN 5 MG TABLETS PO SCH (22:20)
[2021-01-16] MEDS: ROSUVASTATIN CA 10 MG TABLET (FP) PO SCH (22:20)
[2021-01-17] MEDS: LORazepam 1 MG TABLET PO SCH ×4 (05:30→22:19)
[2021-01-17] MEDS: LEVOTHYROXINE 100 MCG, LEVOTHYROXINE 25 MCG PO SCH (06:29)
[2021-01-17] MEDS: PANTOPRAZOLE 40 MG TABLET PO SCH (10:07)
[2021-01-17] MEDS: PRENATAL VITAMINS W/ FOLIC ACID TABLET (FP) PO SCH (10:07)
[2021-01-17] MEDS: NICOTINE 7 MG/24 HOURS TOPICAL PATCH TD SCH (10:07)
[2021-01-17] MEDS: DICLOFENAC SODIUM 25 MG TABLET.DR PO SCH ×2 (11:39→22:19)
[2021-01-17] MEDS: ROSUVASTATIN CA 10 MG TABLET (FP) PO SCH (22:18)
[2021-01-17] MEDS: MELATONIN 5 MG TABLETS PO SCH (22:19)
[2021-01-17] MEDS: THIAMINE HCL 100 MG TABLET (FP) PO SCH (22:40)
[2021-01-18] MEDS ORDERED: LORazepam 0.5 MG TABLET PO PRN
[2021-01-18] MEDS: LORazepam 0.5 MG TABLET PO SCH ×4 (05:51→22:05)
[2021-01-18] MEDS: LEVOTHYROXINE 100 MCG, LEVOTHYROXINE 25 MCG PO SCH (06:13)
[2021-01-18] MEDS: PANTOPRAZOLE 40 MG TABLET PO SCH (10:46)
[2021-01-18] MEDS: PRENATAL VITAMINS W/ FOLIC ACID TABLET (FP) PO SCH (10:46)
[2021-01-18] MEDS: NICOTINE 7 MG/24 HOURS TOPICAL PATCH TD SCH (10:46)
[2021-01-18] MEDS: DICLOFENAC SODIUM 25 MG TABLET.DR PO SCH ×2 (10:48→22:05)
[2021-01-18] MEDS: METHOCARBAMOL 500 MG TABLET PO PRN (10:49)
[2021-01-18] MEDS: THIAMINE HCL 100 MG TABLET (FP) PO SCH (22:03)
[2021-01-18] MEDS: MELATONIN 5 MG TABLETS PO SCH (22:03)
[2021-01-18] MEDS: ROSUVASTATIN CA 10 MG TABLET (FP) PO SCH (22:04)
[2021-01-19] MEDS ORDERED: LORazepam 0.5 MG TABLET PO ONE (05:00)
[2021-01-19] MEDS: LEVOTHYROXINE 100 MCG, LEVOTHYROXINE 25 MCG PO SCH (06:39)
[2021-01-19 08:55] VITALS: BP 128/73; PULSE 66; TEMP 96.1
[2021-01-19] MEDS: PANTOPRAZOLE 40 MG TABLET PO SCH (09:55)
[2021-01-19] MEDS: DICLOFENAC SODIUM 25 MG TABLET.DR PO SCH (09:55)
[2021-01-19] MEDS: PRENATAL VITAMINS W/ FOLIC ACID TABLET (FP) PO SCH (09:56)
[2021-01-19] MEDS: NICOTINE 7 MG/24 HOURS TOPICAL PATCH TD SCH (09:58)
== END 2021-01-19 11:16 | disposition other institution (70) | DRG 897 ==
LOC: YASAS 11:12 → Y3N 15:04
PROVIDERS: ADMIT Allergy & Immunology; ATTEND Allergy & Immunology
PROC: HZ2ZZZZ Detoxification Services for Substance Abuse Treatment (ICD-10-PCS; principal; 2021-01-15)
DX: F10.230 Alcohol dependence with withdrawal, uncomplicated (principal); F14.20 Cocaine dependence, uncomplicated; F12.20 Cannabis dependence, uncomplicated; F17.210 Nicotine dependence, cigarettes, uncomplicated; F31.9 Bipolar disorder, unspecified; F25.9 Schizoaffective disorder, unspecified; F19.24 Other psychoactive substance dependence with psychoactive substance-induced mood disorder; E03.9 Hypothyroidism, unspecified; E78.00 Pure hypercholesterolemia, unspecified; G47.00 Insomnia, unspecified; K21.9 Gastro-esophageal reflux disease without esophagitis; H55.00 Unspecified nystagmus; M06.9 Rheumatoid arthritis, unspecified; M54.5 Low back pain; G89.29 Other chronic pain; E66.9 Obesity, unspecified; Z68.36 Body mass index [BMI] 36.0-36.9, adult; Z98.890 Other specified postprocedural states
CPT/HCPCS: 36415; 80053; 85027; 86780; C9803; U0003; U0005

== ENCOUNTER 2021-04-27 13:18 | Inpatient (IN) | payer OTHER ==
[2021-04-27 16:05] VITALS: BMI 34.2
[2021-04-27] MEDS ORDERED: BISMUTH SUBSALICYLATE 524 MG/30 ML PO PRN (17:42)
[2021-04-27] MEDS ORDERED: MAGNESIUM HYDROX 2400MG/30ML ORAL SUSPENSION 30 ML CUP PO PRN (17:42)
[2021-04-27] MEDS ORDERED: MAG HYDROX/AL HYDROX/SIMETH 30 ML UNIT-DOSE CUP PO PRN (17:42)
[2021-04-27] MEDS ORDERED: NICOTINE 10 MG CARTRIDGE (INHALER) IH PRN (17:42)
[2021-04-27] MEDS ORDERED: NICOTINE 14 MG/24 HOURS TOPICAL PATCH TD PRN (17:42)
[2021-04-27] MEDS ORDERED: MAGNESIUM CITRATE 300 ML BOTTLE PO PRN (17:42)
[2021-04-27] MEDS ORDERED: ONDANSETRON *ODT* 4 MG TABLET SL PRN (17:42)
[2021-04-27] MEDS ORDERED: MENTHOL/PHENOL 1 EACH UD MM PRN (17:42)
[2021-04-27] MEDS ORDERED: ACETAMINOPHEN 325 MG TABLET (FP) PO PRN ×2 (17:42)
[2021-04-27] MEDS ORDERED: LORazepam 1 MG TABLET PO PRN (17:42)
[2021-04-27] MEDS: hydrOXYzine PAMOATE 25 MG CAPSULE (FP) PO SCH ×2 (20:02→22:12)
[2021-04-27] MEDS: IBUPROFEN 400 MG TABLET (FP) PO PRN (20:04)
[2021-04-27] MEDS ORDERED: MELATONIN 5 MG TABLETS PO SCH (22:00)
[2021-04-27] MEDS: THIAMINE HCL 100 MG TABLET (FP) PO SCH (22:11)
[2021-04-27] MEDS: LORazepam 2 MG TABLET PO SCH (22:11)
[2021-04-27] MEDS: ROSUVASTATIN CA 10 MG TABLET (FP) PO SCH (23:01)
[2021-04-28] MEDS: hydrOXYzine PAMOATE 25 MG CAPSULE (FP) PO SCH ×5 (05:34→23:00)
[2021-04-28] MEDS: LORazepam 2 MG TABLET PO SCH ×4 (05:34→22:59)
[2021-04-28] MEDS: LEVOTHYROXINE NA 112 MCG TABLET (FP) PO SCH (07:42)
[2021-04-28] MEDS: METHOCARBAMOL 500 MG TABLET PO PRN (10:06)
[2021-04-28] MEDS: PANTOPRAZOLE 40 MG TABLET PO SCH (10:06)
[2021-04-28 10:12] LABS: HEMATOCRIT 35.5 % (35.4-49); HEMOGLOBIN 12.2 GM/dL (11.7-16.9); MCH 34.1 pg (25.7-33.7); MCHC 34.4 g/dl (32.0-35.9); MEAN CELL VOLUME 99.1 fl (80-96); MEAN PLT VOLUME 8.1 fl (7.5-11.1); PLATELET COUNT 163 10^3/uL (134-434); RBC 3.59 M/mm3 (4.00-5.60)
[2021-04-28 10:19] LABS: ALBUMIN 3.1 g/dl (3.4-5.0)
[2021-04-28 10:22] LABS: CALCIUM 8.4 mg/dL (8.5-10.1)
[2021-04-28 10:23] LABS: CREATININE 0.8 mg/dL (0.55-1.3)
[2021-04-28 10:24] LABS: TOT PROT 6.2 g/dl (6.4-8.2)
[2021-04-28 10:29] LABS: BILIRUBIN,TOTAL 0.6 mg/dL (0.2-1)
[2021-04-28] MEDS: THIAMINE HCL 100 MG TABLET (FP) PO SCH (22:59)
[2021-04-28] MEDS: SUVOREXANT 10 MG TABLET PO PRN (23:00)
[2021-04-28] MEDS: ROSUVASTATIN CA 10 MG TABLET (FP) PO SCH (23:00)
[2021-04-29] MEDS: hydrOXYzine PAMOATE 25 MG CAPSULE (FP) PO SCH ×2 (05:34→10:34)
[2021-04-29] MEDS: LORazepam 1 MG TABLET PO SCH ×4 (05:34→22:36)
[2021-04-29] MEDS: LEVOTHYROXINE NA 112 MCG TABLET (FP) PO SCH (06:38)
[2021-04-29] MEDS: PANTOPRAZOLE 40 MG TABLET PO SCH (10:35)
[2021-04-29] MEDS: PRENATAL VITAMINS W/ FOLIC ACID TABLET (FP) PO SCH (13:40)
[2021-04-29] MEDS: hydrOXYzine PAMOATE 50 MG CAPSULE (FP) PO PRN (17:40)
[2021-04-29] MEDS: THIAMINE HCL 100 MG TABLET (FP) PO SCH (22:36)
[2021-04-29] MEDS: ROSUVASTATIN CA 10 MG TABLET (FP) PO SCH (22:36)
[2021-04-29] MEDS: SUVOREXANT 10 MG TABLET PO PRN (22:37)
[2021-04-30] MEDS ORDERED: LORazepam 0.5 MG TABLET PO PRN
[2021-04-30] MEDS: LORazepam 0.5 MG TABLET PO SCH ×5 (05:35→22:07)
[2021-04-30] MEDS: IBUPROFEN 400 MG TABLET (FP) PO PRN ×2 (05:36→19:59)
[2021-04-30] MEDS: LEVOTHYROXINE NA 112 MCG TABLET (FP) PO SCH (06:28)
[2021-04-30] MEDS: PANTOPRAZOLE 40 MG TABLET PO SCH (10:22)
[2021-04-30] MEDS: hydrOXYzine PAMOATE 50 MG CAPSULE (FP) PO PRN (10:22)
[2021-04-30] MEDS: METHOCARBAMOL 500 MG TABLET PO PRN (10:22)
[2021-04-30] MEDS: PRENATAL VITAMINS W/ FOLIC ACID TABLET (FP) PO SCH (10:22)
[2021-04-30] MEDS: amLODIPine BESYLATE 5 MG TABLET (FP) PO SCH (11:10)
[2021-04-30] MEDS: SUVOREXANT 10 MG TABLET PO PRN (22:06)
[2021-04-30] MEDS: ROSUVASTATIN CA 10 MG TABLET (FP) PO SCH (22:07)
[2021-04-30] MEDS: THIAMINE HCL 100 MG TABLET (FP) PO SCH (22:09)
[2021-05-01] MEDS ORDERED: LORazepam 0.5 MG TABLET PO ONE (05:00)
[2021-05-01] MEDS: LEVOTHYROXINE NA 112 MCG TABLET (FP) PO SCH (07:49)
[2021-05-01] MEDS: amLODIPine BESYLATE 5 MG TABLET (FP) PO SCH (09:00)
[2021-05-01] MEDS: PANTOPRAZOLE 40 MG TABLET PO SCH (09:00)
[2021-05-01 09:18] VITALS: BP 157/79; PULSE 79; TEMP 97.3
== END 2021-05-01 10:34 | disposition home or self-care (01) | DRG 897 ==
LOC: YASAS 13:18 → Y6N 18:44
PROVIDERS: ADMIT Allergy & Immunology; ATTEND Allergy & Immunology
PROC: HZ2ZZZZ Detoxification Services for Substance Abuse Treatment (ICD-10-PCS; principal; 2021-04-27)
DX: F10.230 Alcohol dependence with withdrawal, uncomplicated (principal); F14.20 Cocaine dependence, uncomplicated; F19.282 Other psychoactive substance dependence with psychoactive substance-induced sleep disorder; F12.20 Cannabis dependence, uncomplicated; F17.210 Nicotine dependence, cigarettes, uncomplicated; F20.9 Schizophrenia, unspecified; F41.9 Anxiety disorder, unspecified; F32.9 Major depressive disorder, single episode, unspecified; E03.9 Hypothyroidism, unspecified; E78.00 Pure hypercholesterolemia, unspecified; K21.9 Gastro-esophageal reflux disease without esophagitis; M06.9 Rheumatoid arthritis, unspecified; E66.9 Obesity, unspecified; Z68.34 Body mass index [BMI] 34.0-34.9, adult; Z86.2 Personal history of diseases of the blood and blood-forming organs and certain disorders involving the immune mechanism; Z87.820 Personal history of traumatic brain injury
CPT/HCPCS: 36415; 80053; 85027; 86780; C9803; U0003; U0005

== ENCOUNTER 2021-07-24 13:50 | Inpatient (IN) | payer OTHER ==
[2021-07-24] MEDS ORDERED: ONDANSETRON *ODT* 4 MG TABLET SL PRN (15:07)
[2021-07-24] MEDS ORDERED: MAGNESIUM CITRATE 300 ML BOTTLE PO PRN (15:07)
[2021-07-24] MEDS ORDERED: MENTHOL/PHENOL 1 EACH UD MM PRN (15:07)
[2021-07-24] MEDS ORDERED: MAGNESIUM HYDROX 2400MG/30ML ORAL SUSPENSION 30 ML CUP PO PRN (15:07)
[2021-07-24] MEDS ORDERED: ACETAMINOPHEN 325 MG TABLET (FP) PO PRN ×2 (15:07)
[2021-07-24] MEDS ORDERED: NICOTINE 10 MG CARTRIDGE (INHALER) IH PRN (15:07)
[2021-07-24] MEDS ORDERED: METHOCARBAMOL 500 MG TABLET PO PRN (15:07)
[2021-07-24] MEDS ORDERED: MAG HYDROX/AL HYDROX/SIMETH 30 ML UNIT-DOSE CUP PO PRN (15:07)
[2021-07-24] MEDS ORDERED: BISMUTH SUBSALICYLATE 524 MG/30 ML PO PRN (15:07)
[2021-07-24 15:39] VITALS: BMI 36.1
[2021-07-24] MEDS: IBUPROFEN 400 MG TABLET (FP) PO PRN (18:15)
[2021-07-24] MEDS: hydrOXYzine PAMOATE 25 MG CAPSULE (FP) PO SCH ×2 (18:15→22:16)
[2021-07-24] MEDS: PANTOPRAZOLE 40 MG TABLET PO SCH (18:15)
[2021-07-24] MEDS: diazePAM 5 MG TABLET PO PRN (18:16)
[2021-07-24] MEDS: diazePAM 5 MG TABLET PO SCH (22:16)
[2021-07-24] MEDS: MELATONIN 5 MG TABLETS PO SCH (22:16)
[2021-07-24] MEDS: THIAMINE HCL 100 MG TABLET (FP) PO SCH (22:16)
[2021-07-25] MEDS: hydrOXYzine PAMOATE 25 MG CAPSULE (FP) PO SCH ×5 (05:26→22:37)
[2021-07-25] MEDS: diazePAM 5 MG TABLET PO SCH ×4 (05:27→22:38)
[2021-07-25] MEDS: PRENATAL VITAMINS W/ FOLIC ACID TABLET (FP) PO SCH (10:40)
[2021-07-25] MEDS: PANTOPRAZOLE 40 MG TABLET PO SCH (10:40)
[2021-07-25] MEDS ORDERED: LEVOTHYROXINE NA 112 MCG TABLET (FP) PO SCH (11:00)
[2021-07-25 11:36] LABS: BLOOD UREA NITROGEN 19.6 mg/dL (7-18); CALCIUM 8.7 mg/dL (8.5-10.1)
[2021-07-25 11:39] LABS: CREATININE 0.8 mg/dL (0.55-1.3)
[2021-07-25 11:41] LABS: BILIRUBIN,TOTAL 0.4 mg/dL (0.2-1); TOT PROT 6.1 g/dl (6.4-8.2)
[2021-07-25] MEDS ORDERED: FAMOTIDINE 20 MG TABLET PO SCH (12:00)
[2021-07-25 12:25] LABS: HEMATOCRIT 35.5 % (35.4-49); HEMOGLOBIN 12.1 GM/dL (11.7-16.9); MCH 33.9 pg (25.7-33.7); MEAN CELL VOLUME 99.7 fl (80-96); PLATELET COUNT 195 10^3/uL (134-434); RBC 3.56 M/mm3 (4.00-5.60); RDW 15.1 % (11.9-15.9)
[2021-07-25] MEDS: LEVOTHYROXINE 25 MCG, LEVOTHYROXINE 100 MCG PO SCH (13:06)
[2021-07-25] MEDS: amLODIPine BESYLATE 5 MG TABLET (FP) PO SCH (13:06)
[2021-07-25] MEDS: IBUPROFEN 400 MG TABLET (FP) PO PRN (17:54)
[2021-07-25] MEDS: THIAMINE HCL 100 MG TABLET (FP) PO SCH (22:37)
[2021-07-25] MEDS: ROSUVASTATIN CA 10 MG TABLET PO SCH (22:37)
[2021-07-25] MEDS: MELATONIN 5 MG TABLETS PO SCH (22:37)
[2021-07-26] MEDS: hydrOXYzine PAMOATE 25 MG CAPSULE (FP) PO SCH ×5 (05:20→22:40)
[2021-07-26] MEDS: diazePAM 5 MG TABLET PO SCH ×3 (05:20→22:40)
[2021-07-26] MEDS: LEVOTHYROXINE 25 MCG, LEVOTHYROXINE 100 MCG PO SCH (06:18)
[2021-07-26] MEDS: PRENATAL VITAMINS W/ FOLIC ACID TABLET (FP) PO SCH (10:34)
[2021-07-26] MEDS: PANTOPRAZOLE 40 MG TABLET PO SCH (10:34)
[2021-07-26] MEDS: amLODIPine BESYLATE 5 MG TABLET (FP) PO SCH (10:34)
[2021-07-26] MEDS: DULoxetine HCL 30 MG CAPSULE.DR PO SCH (10:35)
[2021-07-26] MEDS: diazePAM 5 MG TABLET PO PRN (18:00)
[2021-07-26] MEDS: THIAMINE HCL 100 MG TABLET (FP) PO SCH (22:39)
[2021-07-26] MEDS: ROSUVASTATIN CA 10 MG TABLET PO SCH (22:39)
[2021-07-26] MEDS: MELATONIN 5 MG TABLETS PO SCH (22:41)
[2021-07-27] MEDS: hydrOXYzine PAMOATE 25 MG CAPSULE (FP) PO SCH ×5 (05:41→21:48)
[2021-07-27] MEDS: diazePAM 5 MG TABLET PO SCH ×2 (05:42→18:08)
[2021-07-27] MEDS: LEVOTHYROXINE 25 MCG, LEVOTHYROXINE 100 MCG PO SCH (06:09)
[2021-07-27] MEDS: IBUPROFEN 400 MG TABLET (FP) PO PRN (08:18)
[2021-07-27] MEDS: DULoxetine HCL 30 MG CAPSULE.DR PO SCH (10:02)
[2021-07-27] MEDS: PRENATAL VITAMINS W/ FOLIC ACID TABLET (FP) PO SCH (10:02)
[2021-07-27] MEDS: PANTOPRAZOLE 40 MG TABLET PO SCH (10:02)
[2021-07-27] MEDS: amLODIPine BESYLATE 5 MG TABLET (FP) PO SCH (10:03)
[2021-07-27] MEDS: THIAMINE HCL 100 MG TABLET (FP) PO SCH (21:47)
[2021-07-27] MEDS: ROSUVASTATIN CA 10 MG TABLET PO SCH (21:47)
[2021-07-27] MEDS: MELATONIN 5 MG TABLETS PO SCH (21:48)
[2021-07-28] MEDS: hydrOXYzine PAMOATE 25 MG CAPSULE (FP) PO SCH ×2 (05:27→10:04)
[2021-07-28] MEDS ORDERED: diazePAM 5 MG TABLET PO ONE (06:00)
[2021-07-28] MEDS: LEVOTHYROXINE 25 MCG, LEVOTHYROXINE 100 MCG PO SCH (06:24)
[2021-07-28 09:27] VITALS: BP 115/80; PULSE 83; TEMP 97.3
[2021-07-28] MEDS: amLODIPine BESYLATE 5 MG TABLET (FP) PO SCH (10:04)
[2021-07-28] MEDS: DULoxetine HCL 30 MG CAPSULE.DR PO SCH (10:04)
[2021-07-28] MEDS: PRENATAL VITAMINS W/ FOLIC ACID TABLET (FP) PO SCH (10:04)
[2021-07-28] MEDS: PANTOPRAZOLE 40 MG TABLET PO SCH (10:04)
== END 2021-07-28 10:05 | disposition home or self-care (01) | DRG 897 ==
LOC: YASAS 13:50 → Y3N 16:38
PROVIDERS: ADMIT Allergy & Immunology; ATTEND Allergy & Immunology
PROC: HZ2ZZZZ Detoxification Services for Substance Abuse Treatment (ICD-10-PCS; principal; 2021-07-24)
DX: F10.230 Alcohol dependence with withdrawal, uncomplicated (principal); F14.20 Cocaine dependence, uncomplicated; F12.20 Cannabis dependence, uncomplicated; F17.210 Nicotine dependence, cigarettes, uncomplicated; F25.9 Schizoaffective disorder, unspecified; F19.24 Other psychoactive substance dependence with psychoactive substance-induced mood disorder; I10 Essential (primary) hypertension; E03.9 Hypothyroidism, unspecified; K21.9 Gastro-esophageal reflux disease without esophagitis; G47.00 Insomnia, unspecified; E78.5 Hyperlipidemia, unspecified; E78.00 Pure hypercholesterolemia, unspecified; M06.9 Rheumatoid arthritis, unspecified; M54.59 Other low back pain; G89.29 Other chronic pain; E66.9 Obesity, unspecified; Z68.36 Body mass index [BMI] 36.0-36.9, adult; Z91.51 Personal history of suicidal behavior
CPT/HCPCS: 36415; 80053; 82962; 85027; 86780; C9803; U0003; U0005

== ENCOUNTER 2021-09-24 09:38 | Inpatient (IN) | payer OTHER ==
[2021-09-24 10:01] VITALS: BMI 36.9
[2021-09-24] MEDS ORDERED: ACETAMINOPHEN 325 MG TABLET (FP) PO PRN ×2 (14:17)
[2021-09-24] MEDS ORDERED: METHOCARBAMOL 500 MG TABLET PO PRN (14:17)
[2021-09-24] MEDS ORDERED: LOPERAMIDE HCL 2 MG CAPSULE PO PRN (14:17)
[2021-09-24] MEDS ORDERED: MAGNESIUM HYDROX 2400MG/30ML ORAL SUSPENSION 30 ML CUP PO PRN (14:17)
[2021-09-24] MEDS ORDERED: MAGNESIUM CITRATE 300 ML BOTTLE PO PRN (14:17)
[2021-09-24] MEDS ORDERED: MAG HYDROX/AL HYDROX/SIMETH 30 ML UNIT-DOSE CUP PO PRN (14:17)
[2021-09-24] MEDS ORDERED: NICOTINE POLACRILEX 2 MG GUM BUC PRN (14:17)
[2021-09-24] MEDS ORDERED: diazePAM 5 MG TABLET PO PRN (14:17)
[2021-09-24] MEDS ORDERED: MENTHOL/PHENOL 1 EACH UD MM PRN (14:17)
[2021-09-24] MEDS ORDERED: diazePAM 5 MG TABLET PO ONE (14:17)
[2021-09-24] MEDS ORDERED: BISMUTH SUBSALICYLATE 524 MG/30 ML PO PRN (14:17)
[2021-09-24] MEDS ORDERED: ONDANSETRON *ODT* 4 MG TABLET SL PRN (14:17)
[2021-09-24] MEDS ORDERED: TIZANIDINE HCL 2 MG TABLET PO PRN (14:27)
[2021-09-24] MEDS: hydrOXYzine PAMOATE 25 MG CAPSULE (FP) PO PRN (18:06)
[2021-09-24] MEDS: diazePAM 5 MG TABLET PO SCH ×2 (18:06→22:23)
[2021-09-24] MEDS: IBUPROFEN 400 MG TABLET (FP) PO PRN (18:07)
[2021-09-24] MEDS: THIAMINE HCL 100 MG TABLET (FP) PO SCH (22:22)
[2021-09-24] MEDS: MELATONIN 5 MG TABLETS PO SCH (22:22)
[2021-09-24] MEDS: ROSUVASTATIN CA 10 MG TABLET PO SCH (23:45)
[2021-09-25] MEDS: diazePAM 5 MG TABLET PO SCH ×5 (05:33→22:50)
[2021-09-25] MEDS ORDERED: LEVOTHYROXINE NA 25 MCG TABLET (FP) ONE (06:43)
[2021-09-25] MEDS ORDERED: LEVOTHYROXINE NA 100 MCG TABLET (FP) ONE (06:44)
[2021-09-25] MEDS: LEVOTHYROXINE 100 MCG, LEVOTHYROXINE 25 MCG PO SCH (06:44)
[2021-09-25] MEDS ORDERED: LEVOTHYROXINE NA 112 MCG TABLET (FP) PO SCH (07:00)
[2021-09-25] MEDS: PRENATAL VITAMINS W/ FOLIC ACID TABLET (FP) PO SCH (10:37)
[2021-09-25] MEDS: PANTOPRAZOLE 40 MG TABLET PO SCH (10:39)
[2021-09-25] MEDS: LOSARTAN POTASSIUM 25 MG TABLET PO SCH (12:20)
[2021-09-25 16:36] LABS: ALBUMIN 3.4 g/dl (3.4-5.0); BLOOD UREA NITROGEN 16.7 mg/dL (7-18); CALCIUM 8.4 mg/dL (8.5-10.1)
[2021-09-25 16:37] LABS: HEMATOCRIT 37.8 % (35.4-49); HEMOGLOBIN 12.5 GM/dL (11.7-16.9); MCH 32.7 pg (25.7-33.7); MEAN CELL VOLUME 99.2 fl (80-96); MEAN PLT VOLUME 7.9 fl (7.5-11.1); PLATELET COUNT 195 10^3/uL (134-434); RBC 3.81 M/mm3 (4.00-5.60); RDW 14.8 % (11.9-15.9); WHITE BLOOD COUNT 4.2 K/mm3 (4.0-10.0)
[2021-09-25 16:39] LABS: CREATININE 0.9 mg/dL (0.55-1.3)
[2021-09-25 16:41] LABS: TOT PROT 6.5 g/dl (6.4-8.2)
[2021-09-25] MEDS: ROSUVASTATIN CA 10 MG TABLET PO SCH (22:21)
[2021-09-25] MEDS: THIAMINE HCL 100 MG TABLET (FP) PO SCH (22:21)
[2021-09-25] MEDS: SUVOREXANT 10 MG TABLET PO PRN (22:21)
[2021-09-25] MEDS: MELATONIN 5 MG TABLETS PO SCH (22:48)
[2021-09-26] MEDS ORDERED: LEVOTHYROXINE NA 100 MCG TABLET (FP) ONE (04:09)
[2021-09-26] MEDS ORDERED: LEVOTHYROXINE NA 25 MCG TABLET (FP) ONE (04:09)
[2021-09-26] MEDS: diazePAM 5 MG TABLET PO SCH ×3 (05:28→22:33)
[2021-09-26] MEDS: LEVOTHYROXINE 100 MCG, LEVOTHYROXINE 25 MCG PO SCH (06:11)
[2021-09-26 08:10] LABS: SARS-CoV-2 NAA Not Detected (Not Detected)
[2021-09-26] MEDS: PRENATAL VITAMINS W/ FOLIC ACID TABLET (FP) PO SCH (10:23)
[2021-09-26] MEDS: PANTOPRAZOLE 40 MG TABLET PO SCH (10:23)
[2021-09-26] MEDS: LOSARTAN POTASSIUM 25 MG TABLET PO SCH (10:23)
[2021-09-26] MEDS: ROSUVASTATIN CA 10 MG TABLET PO SCH (22:33)
[2021-09-26] MEDS: THIAMINE HCL 100 MG TABLET (FP) PO SCH (22:33)
[2021-09-26] MEDS: SUVOREXANT 10 MG TABLET PO PRN (22:34)
[2021-09-26] MEDS: MELATONIN 5 MG TABLETS PO SCH (23:01)
[2021-09-27] MEDS ORDERED: LEVOTHYROXINE NA 25 MCG TABLET (FP) ONE (04:10)
[2021-09-27] MEDS ORDERED: LEVOTHYROXINE NA 100 MCG TABLET (FP) ONE (04:10)
[2021-09-27] MEDS: diazePAM 5 MG TABLET PO SCH ×2 (05:31→18:40)
[2021-09-27] MEDS: LEVOTHYROXINE 100 MCG, LEVOTHYROXINE 25 MCG PO SCH (07:04)
[2021-09-27] MEDS: LOSARTAN POTASSIUM 25 MG TABLET PO SCH (10:39)
[2021-09-27] MEDS: PRENATAL VITAMINS W/ FOLIC ACID TABLET (FP) PO SCH (10:39)
[2021-09-27] MEDS: PANTOPRAZOLE 40 MG TABLET PO SCH (10:39)
[2021-09-27] MEDS ORDERED: TIZANIDINE HCL 4 MG TABLET PO PRN (11:25)
[2021-09-27] MEDS: DOCUSATE SODIUM 100 MG CAPSULE (FP) PO SCH ×2 (14:41→22:34)
[2021-09-27] MEDS: IBUPROFEN 400 MG TABLET (FP) PO PRN (15:29)
[2021-09-27] MEDS: THIAMINE HCL 100 MG TABLET (FP) PO SCH (22:34)
[2021-09-27] MEDS: ROSUVASTATIN CA 10 MG TABLET PO SCH (22:34)
[2021-09-27] MEDS: MELATONIN 5 MG TABLETS PO SCH (22:35)
[2021-09-28] MEDS ORDERED: LEVOTHYROXINE NA 25 MCG TABLET (FP) ONE (04:14)
[2021-09-28] MEDS ORDERED: LEVOTHYROXINE NA 100 MCG TABLET (FP) ONE (04:15)
[2021-09-28] MEDS: IBUPROFEN 400 MG TABLET (FP) PO PRN (05:23)
[2021-09-28] MEDS: DOCUSATE SODIUM 100 MG CAPSULE (FP) PO SCH (05:25)
[2021-09-28] MEDS ORDERED: diazePAM 5 MG TABLET PO ONE (06:00)
[2021-09-28] MEDS: LEVOTHYROXINE 100 MCG, LEVOTHYROXINE 25 MCG PO SCH (07:05)
[2021-09-28 09:25] VITALS: BP 145/76; PULSE 79; TEMP 96.9
[2021-09-28] MEDS: PANTOPRAZOLE 40 MG TABLET PO SCH (10:18)
[2021-09-28] MEDS: hydrOXYzine PAMOATE 25 MG CAPSULE (FP) PO PRN ×2 (10:18→21:19)
[2021-09-28] MEDS: PRENATAL VITAMINS W/ FOLIC ACID TABLET (FP) PO SCH (10:18)
[2021-09-28] MEDS: LOSARTAN POTASSIUM 25 MG TABLET PO SCH (10:20)
[2021-09-29 15:09] LABS: SARS-CoV-2 NAA Not Detected (Not Detected)
== END 2021-09-28 12:21 | disposition other institution (70) | DRG 897 ==
LOC: YASAS 09:38 → Y6N 14:27
PROVIDERS: ADMIT Allergy & Immunology; ATTEND Allergy & Immunology
PROC: HZ2ZZZZ Detoxification Services for Substance Abuse Treatment (ICD-10-PCS; principal; 2021-09-24)
DX: F10.230 Alcohol dependence with withdrawal, uncomplicated (principal); F14.20 Cocaine dependence, uncomplicated; F19.282 Other psychoactive substance dependence with psychoactive substance-induced sleep disorder; F12.20 Cannabis dependence, uncomplicated; F17.210 Nicotine dependence, cigarettes, uncomplicated; F19.24 Other psychoactive substance dependence with psychoactive substance-induced mood disorder; F25.9 Schizoaffective disorder, unspecified; E03.9 Hypothyroidism, unspecified; E78.5 Hyperlipidemia, unspecified; I10 Essential (primary) hypertension; K21.9 Gastro-esophageal reflux disease without esophagitis; G47.00 Insomnia, unspecified; R73.9 Hyperglycemia, unspecified; E66.9 Obesity, unspecified; Z68.36 Body mass index [BMI] 36.0-36.9, adult
CPT/HCPCS: 36415; 80053; 85027; 86780; 87811; C9803; U0003; U0005

== ENCOUNTER 2021-09-28 12:38 | Inpatient (IN) | payer OTHER ==
[2021-09-28] MEDS ORDERED: P-EPHED 60MG/TRIPROLIDI 2.5MG TABLET PO PRN (14:14)
[2021-09-28] MEDS ORDERED: MAGNESIUM CITRATE 300 ML BOTTLE PO PRN (14:14)
[2021-09-28] MEDS ORDERED: MENTHOL/PHENOL 1 EACH UD MM PRN (14:14)
[2021-09-28] MEDS ORDERED: ACETAMINOPHEN 325 MG TABLET (FP) PO PRN (14:14)
[2021-09-28] MEDS ORDERED: MAGNESIUM HYDROX 2400MG/30ML ORAL SUSPENSION 30 ML CUP PO PRN (14:14)
[2021-09-28] MEDS ORDERED: guaiFENesin 200 MG/10 ML 10 ML UNIT-DOSE CUPS PO PRN (14:14)
[2021-09-28] MEDS ORDERED: IBUPROFEN 400 MG TABLET (FP) PO PRN (14:14)
[2021-09-28] MEDS ORDERED: LOPERAMIDE HCL 2 MG CAPSULE PO PRN (14:14)
[2021-09-28] MEDS ORDERED: NICOTINE 10 MG CARTRIDGE (INHALER) IH PRN (14:14)
[2021-09-28] MEDS ORDERED: MAG HYDROX/AL HYDROX/SIMETH 30 ML UNIT-DOSE CUP PO PRN (14:14)
[2021-09-28] MEDS ORDERED: hydrOXYzine PAMOATE 25 MG CAPSULE (FP) PO PRN (14:17)
[2021-09-28] MEDS ORDERED: PATIENT'S OWN MEDICATION (NON-FORMULARY) (Tizanidine Hcl 2 MG) PO SCH (14:30)
[2021-09-28] MEDS ORDERED: hydrOXYzine PAMOATE 25 MG CAPSULE (FP) PO SCH (18:00)
[2021-09-28] MEDS ORDERED: ROSUVASTATIN CA 10 MG TABLET PO SCH (22:00)
[2021-09-28] MEDS ORDERED: THIAMINE HCL 100 MG TABLET (FP) PO SCH (22:00)
[2021-09-28] MEDS ORDERED: MELATONIN 5 MG TABLETS PO SCH (22:00)
[2021-09-28] MEDS ORDERED: SENNOSIDES 8.6MG TABLET (FP) PO SCH (22:00)
[2021-09-28] MEDS: METHOCARBAMOL 500 MG TABLET PO SCH ×2 (22:07→22:27)
[2021-09-29 06:52] VITALS: TEMP 96.9
[2021-09-29] MEDS ORDERED: LEVOTHYROXINE 100 MCG, LEVOTHYROXINE 25 MCG PO SCH (07:00)
[2021-09-29] MEDS ORDERED: LEVOTHYROXINE NA 25 MCG TABLET (FP) PO SCH (07:00)
[2021-09-29] MEDS ORDERED: LOSARTAN POTASSIUM 25 MG TABLET PO SCH (10:00)
[2021-09-29] MEDS ORDERED: PANTOPRAZOLE 40 MG TABLET PO SCH (10:00)
[2021-09-29] MEDS ORDERED: PRENATAL VITAMINS W/ FOLIC ACID TABLET (FP) PO SCH (10:00)
[2021-09-29] MEDS ORDERED: NICOTINE 7 MG/24 HOURS TOPICAL PATCH TD SCH (10:00)
[2021-09-29] MEDS: METHOCARBAMOL 500 MG TABLET PO SCH (10:16)
[2021-09-29 10:33] VITALS: BP 135/88; PULSE 85
== END 2021-09-29 12:52 | disposition left against medical advice (07) | DRG 894 ==
LOC: YASAS 12:38 → Y3E 12:39
PROVIDERS: ADMIT Allergy & Immunology; ATTEND Allergy & Immunology
PROC: HZ2ZZZZ Detoxification Services for Substance Abuse Treatment (ICD-10-PCS; principal; 2021-09-28)
DX: F10.20 Alcohol dependence, uncomplicated (principal); F14.20 Cocaine dependence, uncomplicated; F19.282 Other psychoactive substance dependence with psychoactive substance-induced sleep disorder; F17.210 Nicotine dependence, cigarettes, uncomplicated; F19.24 Other psychoactive substance dependence with psychoactive substance-induced mood disorder; F25.9 Schizoaffective disorder, unspecified; E03.9 Hypothyroidism, unspecified; E78.00 Pure hypercholesterolemia, unspecified; I10 Essential (primary) hypertension; J45.909 Unspecified asthma, uncomplicated; K21.9 Gastro-esophageal reflux disease without esophagitis; H55.00 Unspecified nystagmus; M51.26 Other intervertebral disc displacement, lumbar region; R73.03 Prediabetes; E66.9 Obesity, unspecified; Z68.33 Body mass index [BMI] 33.0-33.9, adult

== ENCOUNTER 2021-10-22 17:01 | Inpatient (IN) | payer OTHER ==
[2021-10-22 17:36] VITALS: BMI 38.4
[2021-10-22] MEDS ORDERED: MENTHOL/PHENOL 1 EACH UD MM PRN (17:56)
[2021-10-22] MEDS ORDERED: MAG HYDROX/AL HYDROX/SIMETH 30 ML UNIT-DOSE CUP PO PRN (17:56)
[2021-10-22] MEDS ORDERED: IBUPROFEN 400 MG TABLET (FP) PO PRN (17:56)
[2021-10-22] MEDS ORDERED: MAGNESIUM HYDROX 2400MG/30ML ORAL SUSPENSION 30 ML CUP PO PRN (17:56)
[2021-10-22] MEDS ORDERED: LOPERAMIDE HCL 2 MG CAPSULE PO PRN (17:56)
[2021-10-22] MEDS ORDERED: MAGNESIUM CITRATE 300 ML BOTTLE PO PRN (17:56)
[2021-10-22] MEDS ORDERED: ONDANSETRON *ODT* 4 MG TABLET SL PRN (17:56)
[2021-10-22] MEDS ORDERED: BISMUTH SUBSALICYLATE 524 MG/30 ML PO PRN (17:56)
[2021-10-22] MEDS ORDERED: diazePAM 5 MG TABLET PO ONE (17:59)
[2021-10-22] MEDS: METHOCARBAMOL 500 MG TABLET PO PRN (19:38)
[2021-10-22] MEDS: hydrOXYzine PAMOATE 25 MG CAPSULE (FP) PO PRN (19:38)
[2021-10-22] MEDS: diazePAM 5 MG TABLET PO SCH (22:29)
[2021-10-22] MEDS: MELATONIN 5 MG TABLETS PO PRN (22:29)
[2021-10-22] MEDS: THIAMINE HCL 100 MG TABLET (FP) PO SCH (22:29)
[2021-10-23] MEDS: ROSUVASTATIN CA 10 MG TABLET PO SCH ×2 (00:03→22:20)
[2021-10-23] MEDS: diazePAM 5 MG TABLET PO SCH ×4 (06:44→22:20)
[2021-10-23] MEDS: LEVOTHYROXINE NA 25 MCG TABLET (FP) PO SCH (06:45)
[2021-10-23] MEDS: PRENATAL VITAMINS W/ FOLIC ACID TABLET (FP) PO SCH (10:26)
[2021-10-23] MEDS: hydrOXYzine PAMOATE 25 MG CAPSULE (FP) PO PRN (10:26)
[2021-10-23] MEDS: PANTOPRAZOLE 40 MG TABLET PO SCH (10:26)
[2021-10-23] MEDS: LOSARTAN POTASSIUM 25 MG TABLET PO SCH (10:59)
[2021-10-23] MEDS: THIAMINE HCL 100 MG TABLET (FP) PO SCH (22:20)
[2021-10-24] MEDS: diazePAM 5 MG TABLET PO SCH ×3 (06:02→22:19)
[2021-10-24] MEDS: LEVOTHYROXINE NA 25 MCG TABLET (FP) PO SCH (06:03)
[2021-10-24] MEDS: hydrOXYzine PAMOATE 25 MG CAPSULE (FP) PO PRN ×2 (06:04→22:21)
[2021-10-24] MEDS: PANTOPRAZOLE 40 MG TABLET PO SCH (10:05)
[2021-10-24] MEDS: LOSARTAN POTASSIUM 25 MG TABLET PO SCH (10:05)
[2021-10-24] MEDS: PRENATAL VITAMINS W/ FOLIC ACID TABLET (FP) PO SCH (10:06)
[2021-10-24] MEDS: diazePAM 5 MG TABLET PO PRN (10:11)
[2021-10-24] MEDS: DULoxetine HCL 30 MG CAPSULE.DR PO SCH (12:56)
[2021-10-24] MEDS: MELATONIN 5 MG TABLETS PO PRN (22:20)
[2021-10-24] MEDS: THIAMINE HCL 100 MG TABLET (FP) PO SCH (22:20)
[2021-10-25] MEDS: ROSUVASTATIN CA 10 MG TABLET PO SCH ×2 (00:14→22:39)
[2021-10-25] MEDS: diazePAM 5 MG TABLET PO SCH ×2 (06:35→18:12)
[2021-10-25] MEDS: LEVOTHYROXINE NA 25 MCG TABLET (FP) PO SCH (06:36)
[2021-10-25] MEDS: METHOCARBAMOL 500 MG TABLET PO PRN ×2 (06:39→18:15)
[2021-10-25] MEDS: hydrOXYzine PAMOATE 25 MG CAPSULE (FP) PO PRN ×3 (06:40→22:39)
[2021-10-25 08:08] LABS: SARS-CoV-2 NAA Not Detected (Not Detected)
[2021-10-25] MEDS: diazePAM 5 MG TABLET PO PRN (09:57)
[2021-10-25] MEDS: PANTOPRAZOLE 40 MG TABLET PO SCH (09:58)
[2021-10-25] MEDS: PRENATAL VITAMINS W/ FOLIC ACID TABLET (FP) PO SCH (09:58)
[2021-10-25 11:03] LABS: HEMATOCRIT 38.3 % (35.4-49); HEMOGLOBIN 12.8 GM/dL (11.7-16.9); MCHC 33.4 g/dl (32.0-35.9); MEAN CELL VOLUME 98.8 fl (80-96); MEAN PLT VOLUME 8.1 fl (7.5-11.1); PLATELET COUNT 190 10^3/uL (134-434); RBC 3.88 M/mm3 (4.00-5.60); RDW 14.9 % (11.9-15.9)
[2021-10-25 11:10] LABS: ALBUMIN 3.5 g/dl (3.4-5.0); CALCIUM 8.9 mg/dL (8.5-10.1)
[2021-10-25 11:12] LABS: CREATININE 0.7 mg/dL (0.55-1.3)
[2021-10-25 11:14] LABS: BILIRUBIN,TOTAL 1.2 mg/dL (0.2-1); TOT PROT 6.7 g/dl (6.4-8.2)
[2021-10-25] MEDS: LOSARTAN POTASSIUM 25 MG TABLET PO SCH (12:02)
[2021-10-25] MEDS: DULoxetine HCL 30 MG CAPSULE.DR PO SCH (12:02)
[2021-10-25] MEDS: IBUPROFEN 400 MG TABLET (FP) PO PRN ×2 (18:15→22:45)
[2021-10-25] MEDS: MELATONIN 5 MG TABLETS PO PRN (22:39)
[2021-10-26] MEDS: IBUPROFEN 400 MG TABLET (FP) PO PRN ×2 (05:57→10:51)
[2021-10-26] MEDS: METHOCARBAMOL 500 MG TABLET PO PRN (05:58)
[2021-10-26] MEDS ORDERED: diazePAM 5 MG TABLET PO ONE (06:00)
[2021-10-26] MEDS: LEVOTHYROXINE NA 25 MCG TABLET (FP) PO SCH (06:00)
[2021-10-26] MEDS: PRENATAL VITAMINS W/ FOLIC ACID TABLET (FP) PO SCH (10:49)
[2021-10-26] MEDS: PANTOPRAZOLE 40 MG TABLET PO SCH (10:49)
[2021-10-26] MEDS: DULoxetine HCL 30 MG CAPSULE.DR PO SCH (10:49)
[2021-10-26] MEDS: LOSARTAN POTASSIUM 25 MG TABLET PO SCH (10:49)
[2021-10-26 13:27] VITALS: BP 116/80; PULSE 73; TEMP 97.1
== END 2021-10-26 14:45 | disposition other institution (70) | DRG 897 ==
LOC: YASAS 17:01 → Y3N 19:03
PROVIDERS: ADMIT Allergy & Immunology; ATTEND Allergy & Immunology
PROC: HZ2ZZZZ Detoxification Services for Substance Abuse Treatment (ICD-10-PCS; principal; 2021-10-22)
DX: F10.230 Alcohol dependence with withdrawal, uncomplicated (principal); F13.20 Sedative, hypnotic or anxiolytic dependence, uncomplicated; F14.20 Cocaine dependence, uncomplicated; F17.210 Nicotine dependence, cigarettes, uncomplicated; F19.24 Other psychoactive substance dependence with psychoactive substance-induced mood disorder; E78.5 Hyperlipidemia, unspecified; E03.9 Hypothyroidism, unspecified; I10 Essential (primary) hypertension; K21.9 Gastro-esophageal reflux disease without esophagitis; E66.9 Obesity, unspecified; Z68.38 Body mass index [BMI] 38.0-38.9, adult; Z91.51 Personal history of suicidal behavior
CPT/HCPCS: 36415; 80053; 85027; 86780; C9803-CS; U0003; U0005

== ENCOUNTER 2022-03-18 13:29 | Inpatient (IN) | payer OTHER ==
[2022-03-18 15:46] VITALS: BMI 35.9
[2022-03-18] MEDS ORDERED: ACETAMINOPHEN 325 MG TABLET (FP) PO PRN ×2 (19:10)
[2022-03-18] MEDS ORDERED: BENZOCAINE/MENTHOL (CHLORASEPTIC ) LOZENGE MM PRN (19:10)
[2022-03-18] MEDS ORDERED: MAGNESIUM HYDROX 2400MG/30ML ORAL SUSPENSION 30 ML CUP PO PRN (19:10)
[2022-03-18] MEDS ORDERED: MAG HYDROX/AL HYDROX/SIMETH 30 ML UNIT-DOSE CUP PO PRN (19:10)
[2022-03-18] MEDS ORDERED: IBUPROFEN 400 MG TABLET (FP) PO PRN (19:10)
[2022-03-18] MEDS ORDERED: MAGNESIUM CITRATE 300 ML BOTTLE PO PRN (19:10)
[2022-03-18] MEDS ORDERED: DICYCLOMINE HCL 10 MG CAPSULE PO PRN (19:10)
[2022-03-18] MEDS ORDERED: LOPERAMIDE HCL 2 MG CAPSULE PO PRN (19:10)
[2022-03-18] MEDS ORDERED: BISMUTH SUBSALICYLATE 524 MG/30 ML PO PRN (19:10)
[2022-03-18] MEDS ORDERED: ONDANSETRON *ODT* 4 MG TABLET SL PRN (19:10)
[2022-03-18] MEDS: hydrOXYzine PAMOATE 25 MG CAPSULE (FP) PO SCH (21:09)
[2022-03-18] MEDS: THIAMINE HCL 100 MG TABLET (FP) PO SCH (21:09)
[2022-03-18] MEDS: diazePAM 5 MG TABLET PO PRN (21:09)
[2022-03-18] MEDS ORDERED: MELATONIN 5 MG TABLETS PO SCH (22:00)
[2022-03-18] MEDS: ROSUVASTATIN CA 10 MG TABLET PO SCH (22:42)
[2022-03-19] MEDS: diazePAM 5 MG TABLET PO SCH ×5 (00:15→23:50)
[2022-03-19] MEDS: ROSUVASTATIN CA 10 MG TABLET PO SCH ×2 (00:16→23:23)
[2022-03-19] MEDS: LEVOTHYROXINE 25 MCG, LEVOTHYROXINE 100 MCG PO SCH (06:00)
[2022-03-19] MEDS: hydrOXYzine PAMOATE 25 MG CAPSULE (FP) PO SCH ×5 (06:00→23:24)
[2022-03-19] MEDS ORDERED: LEVOTHYROXINE NA 25 MCG TABLET (FP) PO SCH (07:00)
[2022-03-19 10:28] LABS: HEMATOCRIT 36.6 % (35.4-49); HEMOGLOBIN 12.6 GM/dL (11.7-16.9); MCH 33.4 pg (25.7-33.7); MCHC 34.3 g/dl (32.0-35.9); MEAN CELL VOLUME 97.4 fl (80-96); MEAN PLT VOLUME 8.2 fl (7.5-11.1); PLATELET COUNT 192 10^3/uL (134-434); RBC 3.76 M/mm3 (4.00-5.60); RDW 14.9 % (11.9-15.9); WHITE BLOOD COUNT 4.1 K/mm3 (4.0-10.0)
[2022-03-19 10:54] LABS: ALBUMIN 3.4 g/dl (3.4-5.0)
[2022-03-19 10:55] LABS: BLOOD UREA NITROGEN 16.4 mg/dL (7-18)
[2022-03-19 10:57] LABS: CREATININE 0.9 mg/dL (0.55-1.3)
[2022-03-19 10:59] LABS: BILIRUBIN,TOTAL 0.5 mg/dL (0.2-1); TOT PROT 6.6 g/dl (6.4-8.2)
[2022-03-19] MEDS: METHOCARBAMOL 500 MG TABLET PO PRN (11:09)
[2022-03-19] MEDS: PANTOPRAZOLE 40 MG TABLET PO SCH (11:09)
[2022-03-19] MEDS: LOSARTAN POTASSIUM 25 MG TABLET PO SCH (11:09)
[2022-03-19] MEDS: PRENATAL VITAMINS W/ FOLIC ACID TABLET (FP) PO SCH (11:09)
[2022-03-19] MEDS ORDERED: PNEUMOC 20-VAL CONJ-DIP CRM/PF 0.5 ML SYRINGE IM ONE (12:00)
[2022-03-19] MEDS: IBUPROFEN 600 MG TABLET (FP) PO PRN (17:02)
[2022-03-19] MEDS ORDERED: SUVOREXANT 10 MG TABLET PO PRN (22:00)
[2022-03-19] MEDS: THIAMINE HCL 100 MG TABLET (FP) PO SCH (23:24)
[2022-03-20] MEDS: IBUPROFEN 600 MG TABLET (FP) PO PRN (03:21)
[2022-03-20] MEDS: METHOCARBAMOL 500 MG TABLET PO PRN ×2 (03:21→10:16)
[2022-03-20] MEDS: diazePAM 5 MG TABLET PO SCH ×3 (05:26→22:34)
[2022-03-20] MEDS: hydrOXYzine PAMOATE 25 MG CAPSULE (FP) PO SCH ×5 (05:26→22:34)
[2022-03-20] MEDS: LEVOTHYROXINE 25 MCG, LEVOTHYROXINE 100 MCG PO SCH (07:01)
[2022-03-20] MEDS: diazePAM 5 MG TABLET PO PRN ×2 (10:15→18:41)
[2022-03-20] MEDS: LOSARTAN POTASSIUM 25 MG TABLET PO SCH (10:16)
[2022-03-20] MEDS: PRENATAL VITAMINS W/ FOLIC ACID TABLET (FP) PO SCH (10:16)
[2022-03-20] MEDS: PANTOPRAZOLE 40 MG TABLET PO SCH (10:16)
[2022-03-20] MEDS: THIAMINE HCL 100 MG TABLET (FP) PO SCH (22:34)
[2022-03-20] MEDS: ROSUVASTATIN CA 10 MG TABLET PO SCH (22:34)
[2022-03-21] MEDS: hydrOXYzine PAMOATE 25 MG CAPSULE (FP) PO SCH ×5 (06:02→22:42)
[2022-03-21] MEDS: LEVOTHYROXINE 25 MCG, LEVOTHYROXINE 100 MCG PO SCH (07:02)
[2022-03-21] MEDS: diazePAM 5 MG TABLET PO SCH ×2 (07:02→17:52)
[2022-03-21] MEDS: PANTOPRAZOLE 40 MG TABLET PO SCH (10:34)
[2022-03-21] MEDS: LOSARTAN POTASSIUM 25 MG TABLET PO SCH (10:34)
[2022-03-21] MEDS: PRENATAL VITAMINS W/ FOLIC ACID TABLET (FP) PO SCH (10:35)
[2022-03-21] MEDS: METHOCARBAMOL 500 MG TABLET PO PRN (15:43)
[2022-03-21] MEDS: IBUPROFEN 600 MG TABLET (FP) PO PRN (15:44)
[2022-03-21] MEDS: ROSUVASTATIN CA 10 MG TABLET PO SCH (22:42)
[2022-03-21] MEDS: THIAMINE HCL 100 MG TABLET (FP) PO SCH (22:43)
[2022-03-22] MEDS: hydrOXYzine PAMOATE 25 MG CAPSULE (FP) PO SCH ×3 (05:27→14:31)
[2022-03-22] MEDS ORDERED: diazePAM 5 MG TABLET PO ONE (06:00)
[2022-03-22 06:17] VITALS: RESP 18
[2022-03-22] MEDS: LEVOTHYROXINE 25 MCG, LEVOTHYROXINE 100 MCG PO SCH (07:07)
[2022-03-22] MEDS: PANTOPRAZOLE 40 MG TABLET PO SCH (10:22)
[2022-03-22] MEDS: PRENATAL VITAMINS W/ FOLIC ACID TABLET (FP) PO SCH (10:22)
[2022-03-22] MEDS: LOSARTAN POTASSIUM 25 MG TABLET PO SCH (10:23)
[2022-03-22] MEDS ORDERED: BENZOCAINE 28 GM HEMORRHOIDAL OINTMENT RC ONE (10:25)
[2022-03-22 13:22] VITALS: PULSE 84; TEMP 96.9
[2022-03-22 14:48] VITALS: BP 147/90
== END 2022-03-22 15:35 | disposition home or self-care (01) | DRG 897 ==
LOC: YASAS 13:29 → Y6N 19:35
PROVIDERS: ADMIT Allergy & Immunology; ATTEND Surgery
PROC: HZ2ZZZZ Detoxification Services for Substance Abuse Treatment (ICD-10-PCS; principal; 2022-03-18)
DX: F10.230 Alcohol dependence with withdrawal, uncomplicated (principal); F14.20 Cocaine dependence, uncomplicated; F19.282 Other psychoactive substance dependence with psychoactive substance-induced sleep disorder; F13.230 Sedative, hypnotic or anxiolytic dependence with withdrawal, uncomplicated; F12.20 Cannabis dependence, uncomplicated; F17.210 Nicotine dependence, cigarettes, uncomplicated; F25.9 Schizoaffective disorder, unspecified; F19.24 Other psychoactive substance dependence with psychoactive substance-induced mood disorder; E03.9 Hypothyroidism, unspecified; E78.5 Hyperlipidemia, unspecified; I10 Essential (primary) hypertension; K21.9 Gastro-esophageal reflux disease without esophagitis; K64.8 Other hemorrhoids; R73.9 Hyperglycemia, unspecified; E66.9 Obesity, unspecified; Z68.35 Body mass index [BMI] 35.0-35.9, adult
CPT/HCPCS: 36415; 80053; 82962; 85027; 86780; C9803-CS; U0003; U0005

== ENCOUNTER 2022-11-19 09:47 | Inpatient (IN) | payer OTHER ==
[2022-11-19 10:49] VITALS: BMI 33.3
[2022-11-19] MEDS ORDERED: BENZONATATE 200 MG CAPSULE PO PRN (11:45)
[2022-11-19] MEDS ORDERED: BISMUTH SUBSALICYLATE 524 MG/30 ML PO PRN (11:45)
[2022-11-19] MEDS ORDERED: ONDANSETRON *ODT* 4 MG TABLET SL PRN (11:45)
[2022-11-19] MEDS ORDERED: NICOTINE 10 MG CARTRIDGE (INHALER) IH PRN (11:45)
[2022-11-19] MEDS ORDERED: LOPERAMIDE HCL 2 MG CAPSULE PO PRN (11:45)
[2022-11-19] MEDS ORDERED: DICYCLOMINE HCL 10 MG CAPSULE PO PRN (11:45)
[2022-11-19] MEDS ORDERED: IBUPROFEN 400 MG TABLET (FP) PO PRN (11:45)
[2022-11-19] MEDS ORDERED: POLYETHYLENE GLYCOL (HEALTHYLAX) 3350 17 GM PACKET PO PRN (11:45)
[2022-11-19] MEDS ORDERED: NICOTINE 14 MG/24 HOURS TOPICAL PATCH TD PRN (11:45)
[2022-11-19] MEDS ORDERED: diazePAM 5 MG TABLET PO PRN (11:45)
[2022-11-19] MEDS ORDERED: BENZOCAINE/MENTHOL (CHLORASEPTIC ) LOZENGE MM PRN (11:45)
[2022-11-19] MEDS ORDERED: MAGNESIUM HYDROX 2400MG/30ML ORAL SUSPENSION 30 ML CUP PO PRN (11:45)
[2022-11-19] MEDS ORDERED: guaiFENesin 600 MG TABLET.ER (FP) PO PRN (11:45)
[2022-11-19] MEDS ORDERED: MAG HYDROX/AL HYDROX/SIMETH 30 ML UNIT-DOSE CUP PO PRN (11:45)
[2022-11-19] MEDS ORDERED: NICOTINE POLACRILEX 2 MG GUM BUC PRN (11:45)
[2022-11-19] MEDS: IBUPROFEN 600 MG TABLET (FP) PO PRN (12:42)
[2022-11-19] MEDS ORDERED: IBUPROFEN 600 MG TABLET (FP) PO ONE (12:44)
[2022-11-19] MEDS: diazePAM 5 MG TABLET PO SCH ×2 (17:13→22:49)
[2022-11-19] MEDS: hydrOXYzine PAMOATE 25 MG CAPSULE (FP) PO PRN (17:14)
[2022-11-19 18:15] LABS: HEMATOCRIT 36.3 % (35.4-49); HEMOGLOBIN 12.7 GM/dL (11.7-16.9); MCH 33.7 pg (25.7-33.7); MEAN CELL VOLUME 96.2 fl (80-96); MEAN PLT VOLUME 7.7 fl (7.5-11.1); PLATELET COUNT 229 10^3/uL (134-434); RBC 3.77 M/mm3 (4.00-5.60); RDW 14.5 % (11.9-15.9)
[2022-11-19 18:48] LABS: ALBUMIN 3.9 g/dl (3.4-5.0); CALCIUM 9.2 mg/dL (8.5-10.1)
[2022-11-19 18:49] LABS: BLOOD UREA NITROGEN 11.4 mg/dL (7-18)
[2022-11-19 18:51] LABS: CREATININE 0.9 mg/dL (0.55-1.3)
[2022-11-19 18:53] LABS: BILIRUBIN,TOTAL 0.4 mg/dL (0.2-1); TOT PROT 7.2 g/dl (6.4-8.2)
[2022-11-19] MEDS ORDERED: MELATONIN 5 MG TABLETS PO SCH (22:00)
[2022-11-19] MEDS: METHOCARBAMOL 500 MG TABLET PO PRN (22:47)
[2022-11-19] MEDS: THIAMINE HCL 100 MG TABLET (FP) PO SCH (22:47)
[2022-11-19] MEDS: SUVOREXANT 10 MG TABLET PO PRN (22:48)
[2022-11-19] MEDS: ARTIFICIAL TEARS (POLYVINYL ALCOHOL) OPTH DROPS OU SCH (22:48)
[2022-11-19] MEDS: ROSUVASTATIN CA 10 MG TABLET PO SCH (23:24)
[2022-11-20] MEDS: diazePAM 5 MG TABLET PO SCH ×4 (05:44→22:22)
[2022-11-20] MEDS: LEVOTHYROXINE 100 MCG, LEVOTHYROXINE 25 MCG PO SCH (06:59)
[2022-11-20] MEDS ORDERED: LEVOTHYROXINE NA 125 MCG TABLET (FP) PO SCH (07:00)
[2022-11-20] MEDS: hydrOXYzine PAMOATE 25 MG CAPSULE (FP) PO PRN (10:24)
[2022-11-20] MEDS: PRENATAL VITAMINS W/ FOLIC ACID TABLET (FP) PO SCH (10:24)
[2022-11-20] MEDS: METHOCARBAMOL 500 MG TABLET PO PRN (10:24)
[2022-11-20] MEDS: ARTIFICIAL TEARS (POLYVINYL ALCOHOL) OPTH DROPS OU SCH ×2 (10:25→22:23)
[2022-11-20] MEDS: AMOXICILLIN 500 MG CAPSULE (FP) PO SCH ×2 (14:36→22:23)
[2022-11-20] MEDS: IBUPROFEN 600 MG TABLET (FP) PO PRN ×2 (14:39→22:25)
[2022-11-20] MEDS: SUVOREXANT 10 MG TABLET PO PRN (22:21)
[2022-11-20] MEDS: THIAMINE HCL 100 MG TABLET (FP) PO SCH (22:23)
[2022-11-20] MEDS: ROSUVASTATIN CA 10 MG TABLET PO SCH (22:23)
[2022-11-21] MEDS: ACETAMINOPHEN 325 MG TABLET (FP) PO PRN ×2 (01:40→10:19)
[2022-11-21] MEDS: diazePAM 5 MG TABLET PO SCH ×3 (05:35→22:09)
[2022-11-21] MEDS: IBUPROFEN 600 MG TABLET (FP) PO PRN ×3 (05:37→22:09)
[2022-11-21] MEDS: hydrOXYzine PAMOATE 25 MG CAPSULE (FP) PO PRN (05:39)
[2022-11-21] MEDS: AMOXICILLIN 500 MG CAPSULE (FP) PO SCH ×3 (06:06→22:08)
[2022-11-21] MEDS: LEVOTHYROXINE 100 MCG, LEVOTHYROXINE 25 MCG PO SCH (06:06)
[2022-11-21] MEDS: ARTIFICIAL TEARS (POLYVINYL ALCOHOL) OPTH DROPS OU SCH ×2 (10:15→22:10)
[2022-11-21] MEDS: PRENATAL VITAMINS W/ FOLIC ACID TABLET (FP) PO SCH (10:16)
[2022-11-21] MEDS: INSULIN SLIDING SCALE (NOVOLOG) 1 VIAL SQ SCH ×2 (17:00→22:09)
[2022-11-21] MEDS: ROSUVASTATIN CA 10 MG TABLET PO SCH (22:08)
[2022-11-21] MEDS: METHOCARBAMOL 500 MG TABLET PO PRN (22:09)
[2022-11-21] MEDS: SUVOREXANT 10 MG TABLET PO PRN (22:10)
[2022-11-21] MEDS: THIAMINE HCL 100 MG TABLET (FP) PO SCH (23:34)
[2022-11-22] MEDS: AMOXICILLIN 500 MG CAPSULE (FP) PO SCH ×3 (05:44→22:09)
[2022-11-22] MEDS: diazePAM 5 MG TABLET PO SCH ×2 (05:44→17:16)
[2022-11-22] MEDS: ACETAMINOPHEN 325 MG TABLET (FP) PO PRN (05:47)
[2022-11-22] MEDS: LEVOTHYROXINE 100 MCG, LEVOTHYROXINE 25 MCG PO SCH (06:38)
[2022-11-22] MEDS: INSULIN SLIDING SCALE (NOVOLOG) 1 VIAL SQ SCH ×4 (07:15→22:11)
[2022-11-22] MEDS: PRENATAL VITAMINS W/ FOLIC ACID TABLET (FP) PO SCH (10:05)
[2022-11-22] MEDS: ARTIFICIAL TEARS (POLYVINYL ALCOHOL) OPTH DROPS OU SCH ×2 (10:06→22:13)
[2022-11-22] MEDS ORDERED: INSULIN (NOVOLOG) ASPART 100 UNITS/ML 10ML VIAL ONE (11:29)
[2022-11-22] MEDS: IBUPROFEN 600 MG TABLET (FP) PO PRN (12:55)
[2022-11-22] MEDS: SUVOREXANT 10 MG TABLET PO PRN (21:39)
[2022-11-22] MEDS: THIAMINE HCL 100 MG TABLET (FP) PO SCH (22:09)
[2022-11-22] MEDS: ROSUVASTATIN CA 10 MG TABLET PO SCH (22:09)
[2022-11-23] MEDS: AMOXICILLIN 500 MG CAPSULE (FP) PO SCH (05:31)
[2022-11-23] MEDS ORDERED: diazePAM 5 MG TABLET PO ONE (06:00)
[2022-11-23] MEDS: LEVOTHYROXINE 100 MCG, LEVOTHYROXINE 25 MCG PO SCH (06:24)
[2022-11-23] MEDS: INSULIN SLIDING SCALE (NOVOLOG) 1 VIAL SQ SCH ×2 (07:43→10:38)
[2022-11-23 09:30] VITALS: BP 115/73; PULSE 98; RESP 16; TEMP 97.8
[2022-11-23] MEDS: ARTIFICIAL TEARS (POLYVINYL ALCOHOL) OPTH DROPS OU SCH (10:38)
[2022-11-23] MEDS: PRENATAL VITAMINS W/ FOLIC ACID TABLET (FP) PO SCH (10:38)
== END 2022-11-23 10:30 | disposition home or self-care (01) | DRG 897 ==
LOC: YASAS 09:47 → Y6N 12:01
PROVIDERS: ADMIT Allergy & Immunology; ATTEND Surgery
PROC: HZ2ZZZZ Detoxification Services for Substance Abuse Treatment (ICD-10-PCS; principal; 2022-11-19)
DX: F10.230 Alcohol dependence with withdrawal, uncomplicated (principal); F13.20 Sedative, hypnotic or anxiolytic dependence, uncomplicated; F14.20 Cocaine dependence, uncomplicated; F12.20 Cannabis dependence, uncomplicated; F17.210 Nicotine dependence, cigarettes, uncomplicated; E03.9 Hypothyroidism, unspecified; E78.5 Hyperlipidemia, unspecified; K21.9 Gastro-esophageal reflux disease without esophagitis; Z86.2 Personal history of diseases of the blood and blood-forming organs and certain disorders involving the immune mechanism; Z87.820 Personal history of traumatic brain injury
CPT/HCPCS: 36415; 80053; 82962; 85027; 86780; C9803-CS; U0003; U0005

== ENCOUNTER 2024-07-24 14:17 | Inpatient (IN) | payer OTHER ==
[2024-07-24 15:35] VITALS: BMI 32.5
[2024-07-24] MEDS ORDERED: BENZONATATE 200 MG CAPSULE PO PRN (16:46)
[2024-07-24] MEDS ORDERED: MAG HYDROX/AL HYDROX/SIMETH 30 ML UNIT-DOSE CUP PO PRN (16:46)
[2024-07-24] MEDS ORDERED: POLYETHYLENE GLYCOL (HEALTHYLAX) 3350 17 GM PACKET PO PRN (16:46)
[2024-07-24] MEDS ORDERED: ONDANSETRON *ODT* 4 MG TABLET SL PRN (16:46)
[2024-07-24] MEDS ORDERED: chlordiazePOXIDE HCL 25 MG CAPSULE PO PRN (16:46)
[2024-07-24] MEDS ORDERED: ACETAMINOPHEN 325 MG TABLET (FP) PO PRN (16:46)
[2024-07-24] MEDS ORDERED: LOPERAMIDE HCL 2 MG CAPSULE PO PRN (16:46)
[2024-07-24] MEDS ORDERED: hydrOXYzine PAMOATE 25 MG CAPSULE (FP) PO PRN (16:46)
[2024-07-24] MEDS ORDERED: METHOCARBAMOL 500 MG TABLET PO PRN (16:46)
[2024-07-24] MEDS ORDERED: BISMUTH SUBSALICYLATE 524 MG/30 ML PO PRN (16:46)
[2024-07-24] MEDS ORDERED: MAGNESIUM HYDROX 2400MG/30ML ORAL SUSPENSION 30 ML CUP PO PRN (16:46)
[2024-07-24] MEDS ORDERED: BENZOCAINE/MENTHOL (CHLORASEPTIC ) LOZENGE MM PRN (16:46)
[2024-07-24] MEDS ORDERED: NALOXONE (NARCAN) HCL 4 MG/0.1 ML SPRAY NS PRN (16:46)
[2024-07-24] MEDS ORDERED: IBUPROFEN 400 MG TABLET (FP) PO PRN (16:46)
[2024-07-24] MEDS ORDERED: guaiFENesin 600 MG TABLET.ER (FP) PO PRN (16:46)
[2024-07-24] MEDS ORDERED: DICYCLOMINE HCL 10 MG CAPSULE PO PRN (16:46)
[2024-07-24] MEDS ORDERED: chlordiazePOXIDE HCL 25 MG CAPSULE ONE (18:05)
[2024-07-24] MEDS: chlordiazePOXIDE HCL 25 MG CAPSULE PO SCH (18:07)
[2024-07-24] MEDS: THIAMINE 100 MG TABLET PO SCH (21:51)
[2024-07-24] MEDS: MELATONIN 5 MG TABLETS PO SCH (21:51)
[2024-07-24] MEDS: IBUPROFEN 600 MG TABLET (FP) PO PRN (21:52)
[2024-07-24] MEDS: ROSUVASTATIN CA 10 MG TABLET PO SCH (23:07)
[2024-07-25 06:48] VITALS: TEMP 97.3
[2024-07-25] MEDS: LEVOTHYROXINE NA 125 MCG TABLET (FP) PO SCH (07:31)
[2024-07-25 09:12] LABS: HEMATOCRIT 32.9 % (35.4-49); HEMOGLOBIN 11.6 GM/dL (11.7-16.9); MCH 34.2 pg (25.7-33.7); MCHC 35.1 g/dl (32.0-35.9); MEAN CELL VOLUME 97.5 fl (80-96); MEAN PLT VOLUME 7.9 fl (7.5-11.1); PLATELET COUNT 189 10^3/uL (134-434); RBC 3.38 M/mm3 (4.00-5.60); RDW 14.3 % (11.9-15.9); WHITE BLOOD COUNT 5.6 K/mm3 (4.0-10.0)
[2024-07-25 09:43] VITALS: BP 127/56; PULSE 76; RESP 17
[2024-07-25 09:45] LABS: CHLORIDE 105 mmol/L (98-107); POTASSIUM 4.1 mmol/L (3.5-5.1); SODIUM 140 mmol/L (136-145)
[2024-07-25 09:47] LABS: ALBUMIN 2.9 g/dl (3.4-5.0); ANION GAP 5 mmol/L (4-13); BLOOD UREA NITROGEN 19.3 mg/dL (7-18); CALCIUM 8.6 mg/dL (8.5-10.1); CO2 29 mmol/L (21-32); GLUCOSE,RANDOM 195 mg/dL (74-106)
[2024-07-25 09:50] LABS: CREATININE 0.6 mg/dL (0.55-1.3); SGPT/ALT 26 U/L (13-61)
[2024-07-25 09:52] LABS: BILIRUBIN,TOTAL 0.2 mg/dL (0.2-1); SGOT/AST 27 U/L (15-37); TOT PROT 5.8 g/dl (6.4-8.2)
[2024-07-25 09:53] LABS: ALK PHOS 59 U/L (45-117)
[2024-07-25] MEDS: LOSARTAN POTASSIUM 25 MG TABLET PO SCH (10:13)
[2024-07-25] MEDS: PRENATAL VITAMINS W/ FOLIC ACID TABLET (FP) PO SCH (10:13)
[2024-07-25] MEDS: PANTOPRAZOLE 40 MG TABLET PO SCH (10:31)
[2024-07-25] MEDS: FLU VACCINE (FLULAVAL) PF 45 MCG/0.5 ML SYRINGE 2024-2025 IM ONE (11:17)
[2024-07-26] MEDS ORDERED: chlordiazePOXIDE HCL 25 MG CAPSULE PO SCH (05:00)
[2024-07-27] MEDS ORDERED: chlordiazePOXIDE HCL 10 MG CAPSULE PO PRN
[2024-07-27] MEDS ORDERED: chlordiazePOXIDE HCL 10 MG CAPSULE PO SCH (05:00)
[2024-07-28] MEDS ORDERED: chlordiazePOXIDE HCL 10 MG CAPSULE PO SCH (05:00)
[2024-07-29] MEDS ORDERED: chlordiazePOXIDE HCL 10 MG CAPSULE PO ONE (05:00)
== END 2024-07-25 10:47 | disposition left against medical advice (07) | DRG 894 ==
LOC: YASAS 14:17 → Y6N 20:07
PROVIDERS: ADMIT Allergy & Immunology; ATTEND Surgery
PROC: HZ2ZZZZ Detoxification Services for Substance Abuse Treatment (ICD-10-PCS; principal; 2024-07-24)
DX: F10.230 Alcohol dependence with withdrawal, uncomplicated (principal); F14.20 Cocaine dependence, uncomplicated; F13.20 Sedative, hypnotic or anxiolytic dependence, uncomplicated; F17.210 Nicotine dependence, cigarettes, uncomplicated; I10 Essential (primary) hypertension; E78.5 Hyperlipidemia, unspecified; E03.9 Hypothyroidism, unspecified; K21.9 Gastro-esophageal reflux disease without esophagitis
CPT/HCPCS: 36415; 80053; 80307; 84443; 85027; 86780; 93005; 93010